=== PATIENT | female | born 1960 | race Caucasian/White ===

== ENCOUNTER → 2020-04-14 10:55 | Outpatient (CLI) | payer BC, SELFPAY ==
--- NOTE | 2020-04-14 | DI.MG.S_ITS ---
BILATERAL DIGITAL SCREENING MAMMOGRAM 3D/2D WITH CAD: 04/14/2020 CLINICAL: Routine screening. Comparison is made to exams dated: 02/19/2019 mammogram, 01/30/2018 mammogram, and 12/27/2016 mammogram - outside location. The tissue of both breasts is heterogeneously dense. This may lower the sensitivity of mammography. Current study was also evaluated with a Computer Aided Detection (CAD) system. There is developing architectural distortion in the left breast at 12 o'clock posterior depth. No other significant masses, calcifications, or other findings are seen in either breast. IMPRESSION: INCOMPLETE: NEEDS ADDITIONAL IMAGING EVALUATION The developing architectural distortion in the left breast is indeterminate. Additional views with possible ultrasound are recommended. This exam was interpreted at Station ID: [id number]. NOTE: For mammograms, a report in lay terms will be sent to the patient. Approximately 15% of breast malignancies will not be visualized mammographically. In the management of a palpable breast mass, a negative mammogram must not discourage biopsy of a clinically suspicious lesion. Electronically Signed By: Promise riddle/micaela:04/14/2020 16:28:32 letter sent: Additional Imaging Needed ACR BI-RADS Category 0: Incomplete 3340F
== END ==
PROVIDERS: PCP Family Medicine; Referring Provider Family Medicine; Visit Provider Family Medicine
DX: Z12.31 Encounter for screening mammogram for malignant neoplasm of breast (principal)
CPT/HCPCS: 77063; 77067

== ENCOUNTER → 2020-05-04 15:04 | Outpatient (CLI) | payer BC, SELFPAY ==
--- NOTE | 2020-05-04 15:06 | DI.US.S_ITS ---
ULTRASOUND OF LEFT BREAST: 05/04/2020 CLINICAL: Left breast ABN Mammo. Comparison is made to exams dated: 05/04/2020 mammogram, 04/14/2020 mammogram - [facility], 02/19/2019 mammogram, 01/30/2018 mammogram, and 12/27/2016 mammogram - outside location. Real-time ultrasound of the left breast was performed. George scale images of the real-time examination were reviewed. No significant abnormalities were seen sonographically in the left breast. IMPRESSION: NEGATIVE There is no sonographic evidence of malignancy. There is no abnormality seen in the left breast to correspond with the resolved mammography finding which is consistent with normal fibroglandular tissue. A 1 year screening mammogram is recommended. This exam was interpreted at Station ID: [id number]. Electronically Signed By: Chuck Rodrigez M.D. aty/:05/04/2020 16:34:04 letter sent: Normal Exam Ultrasound BI-RADS: 1 Negative
--- NOTE | 2020-05-04 15:06 | DI.MG.S_ITS ---
UNILATERAL LEFT DIGITAL DIAGNOSTIC MAMMOGRAM 3D/2D WITH ADDITIONAL VIEWS: 05/04/2020 CLINICAL: Additional evaluation requested from prior study. Comparison is made to exams dated: 04/14/2020 mammogram - [facility], 02/19/2019 mammogram, and 01/30/2018 mammogram - outside location. The tissue of left breast is heterogeneously dense. This may lower the sensitivity of mammography. The previously described developing architectural distortion in the left breast at 12 o'clock posterior depth is no longer visualized on today's additional views and is consistent with summation artifact. No other significant masses or calcifications are seen in the breast. IMPRESSION: INCOMPLETE: NEEDS ADDITIONAL IMAGING EVALUATION The previously described possible architectural distortion disperses with additional views and is consistent with summation artifact. An ultrasound is recommended for further evaluation and is scheduled to immediately follow this study. This exam was interpreted at Station ID: [id number]. NOTE: For mammograms, a report in lay terms will be sent to the patient. Approximately 15% of breast malignancies will not be visualized mammographically. In the management of a palpable breast mass, a negative mammogram must not discourage biopsy of a clinically suspicious lesion. Electronically Signed By: Chuck Rodrigez M.D. aty/:05/04/2020 16:32:52 ACR BI-RADS Category 0: Incomplete 3340F
== END ==
PROVIDERS: PCP Family Medicine; Referring Provider Family Medicine; Visit Provider Family Medicine
DX: R92.8 Other abnormal and inconclusive findings on diagnostic imaging of breast (principal)
CPT/HCPCS: 76642; 77065; G0279

== ENCOUNTER → 2020-12-15 10:00 | Outpatient (CLI) | payer BC, SELFPAY ==
--- NOTE | 2020-12-15 10:03 | DI.RAD.S_ITS ---
PROCEDURE: XR HIP W PEL IF DONE RT 2V INDICATIONS: RT HIP PAIN TECHNIQUE: AP pelvis with lateral view(s) of the right hip(s). COMPARISON: None. FINDINGS: Bones: No fractures or dislocations. Pelvic ring appears intact. No suspicious bony lesions. Mild symmetric bilateral DJD appreciated. No avascular necrosis of the right femoral head. Soft tissues: The visualized bowel gas pattern is normal. No suspicious soft tissue calcifications. IMPRESSION: Mild bilateral hip DJD. Dictated by: Talon Solorio M.D. on 12/15/2020 at 11:45 Approved by: Talon Solorio M.D. on 12/15/2020 at 11:46
== END ==
PROVIDERS: PCP Family Medicine; Referring Provider Family Medicine; Visit Provider Family Medicine
DX: M25.551 Pain in right hip (principal); M16.0 Bilateral primary osteoarthritis of hip
CPT/HCPCS: 73502

== ENCOUNTER → 2021-06-11 16:06 | Outpatient (CLI) | payer BC, SELFPAY ==
--- NOTE | 2021-06-11 | DI.MG.S_ITS ---
BILATERAL DIGITAL SCREENING MAMMOGRAM 3D/2D WITH CAD: 06/11/2021 CLINICAL: Routine screening. Family history of breast cancer. Comparison is made to exams dated: 04/14/2020 mammogram - [facility], 02/19/2019 mammogram - outside location, 05/04/2020 mammogram, and 05/04/2020 ultrasound - [facility]. There are scattered fibroglandular elements in both breasts. Current study was also evaluated with a Computer Aided Detection (CAD) system. No significant masses, calcifications, or other findings are seen in either breast. There has been no significant interval change. IMPRESSION: NEGATIVE There is no mammographic evidence of malignancy. A 1 year screening mammogram is recommended. This exam was interpreted at Station ID: [id number]. NOTE: For mammograms, a report in lay terms will be sent to the patient. Approximately 15% of breast malignancies will not be visualized mammographically. In the management of a palpable breast mass, a negative mammogram must not discourage biopsy of a clinically suspicious lesion. Electronically Signed By: Melissa serrano/micaela:06/11/2021 17:04:47 letter sent: Normal Exam ACR BI-RADS Category 1: Negative 3341F
== END ==
PROVIDERS: PCP Family Medicine; Referring Provider Family Medicine; Visit Provider Family Medicine
DX: Z12.31 Encounter for screening mammogram for malignant neoplasm of breast (principal); Z80.3 Family history of malignant neoplasm of breast
CPT/HCPCS: 77063; 77067

== ENCOUNTER → 2022-05-13 07:30 | Outpatient (CLI) | payer BC, SELFPAY ==
--- NOTE | 2022-05-13 | DI.US.S_ITS ---
PROCEDURE: US PELVIC COMPLETE INDICATIONS: Postmenopausal bleeding TECHNIQUE: Real-time scanning was performed of the pelvic organs, with image documentation. Additional endovaginal scanning was necessary due to incomplete visualization of the adnexal and endometrial structures by transabdominal scanning. COMPARISON: None. FINDINGS: Uterus: Uterus is anteverted and normal in size at 9.4 x 4.3 x 5.8 cm. The myometrium is homogeneous. The endometrium measures 10 mm in thickness. A small amount of nonspecific fluid is seen within the fundal endometrium. When the fluid component is subtracted, the endometrium measures approximately 6 mm in combined thickness. Ovaries: The right ovary measures 2.2 x 1.2 x 1.9 cm, with a calculated ovarian volume of 2.5 cc. The left ovary measures 2 x 1.5 x 1.7 cm, with a calculated ovarian volume of 2.5 cc. The ovaries have a normal sonographic appearance. Less than 12 follicles can be seen in each ovary. No adnexal masses are seen. Other: No pathologic free abdominal or pelvic fluid. IMPRESSION: Mildly thickened endometrium with a small amount of nonspecific endometrial fluid. In the setting of postmenopausal bleeding, gynecological consultation is recommended to evaluate for a possible endometrial biopsy. We strive to produce accurate, complete, and clear reports of imaging services. To assist us in improving patient care, this report was composed using standard report templates and voice recognition software. Therefore, it may contain abnormal punctuation, insertions and/or omissions. Occasional wrong-word or sound-alike substitutions may occur. Though we review the report and make efforts to correct it, we do recommend that the report be read carefully in proper context to recognize any text inaccuracies. Dictated by: Talib Miranda M.D. on 05/13/2022 at 12:39 Approved by: Talib Miranda M.D. on 05/13/2022 at 12:43
== END ==
PROVIDERS: PCP Family Medicine; Referring Provider Family Medicine; Visit Provider Family Medicine
DX: N95.0 Postmenopausal bleeding (principal); R93.89 Abnormal findings on diagnostic imaging of other specified body structures
CPT/HCPCS: 76830; 76856

== ENCOUNTER → 2022-06-20 16:40 | Outpatient (CLI) | payer BC, SELFPAY ==
--- NOTE | 2022-06-20 16:42 | DI.MG.S_ITS ---
BILATERAL DIGITAL SCREENING MAMMOGRAM 3D/2D WITH CAD: 06/20/2022 CLINICAL: Routine screening. Family history of breast cancer. Comparison is made to exams dated: 06/11/2021 mammogram, 04/14/2020 mammogram - [facility], and 02/19/2019 mammogram - outside location. There are scattered areas of fibroglandular density in both breasts (category b / 25%-50% glandular tissue). Current study was also evaluated with a Computer Aided Detection (CAD) system. No significant masses, calcifications, or other findings are seen in either breast. There has been no significant interval change. IMPRESSION: NEGATIVE There is no mammographic evidence of malignancy. A 1 year screening mammogram is recommended. Based on the Tyrer Cuzick model (a risk assessment model) the patient's lifetime risk is 10.4% and her 10 year risk is 5.9%. According to the ACR, ACS, and NCCN guidelines, an annual breast MRI exam along with mammogram is recommended if the patient's lifetime risk is 20% or greater. This exam was interpreted at Station ID: [id number]. NOTE: For mammograms, a report in lay terms will be sent to the patient. Approximately 15% of breast malignancies will not be visualized mammographically. In the management of a palpable breast mass, a negative mammogram must not discourage biopsy of a clinically suspicious lesion. Electronically Signed By: Martin shepherd/micaela:06/21/2022 09:03:27 letter sent: Normal Exam ACR BI-RADS Category 1: Negative 3341F
== END ==
PROVIDERS: PCP Family Medicine; Referring Provider Family Medicine; Visit Provider Family Medicine
DX: Z12.31 Encounter for screening mammogram for malignant neoplasm of breast (principal); Z80.3 Family history of malignant neoplasm of breast
CPT/HCPCS: 77063; 77067

== ENCOUNTER → 2022-12-06 | Outpatient (CLI) | payer BC, SELFPAY ==
--- NOTE | 2022-12-06 | DI.RAD.S_ITS ---
Bone Density Report Name: ALEM AMANDA Age: 62 Sex: Female Ethnicity: White Date of : 1960 Indication: postmenopausal; screening for osteoporosis; Referring Provider: NEREYDA DE LEON Study: Bone densitometry was performed. Exam Date: December 06, 2022 Accession number: [id number] Bone Density: Region BMD T-score Z-score Classification AP Spine(L1, L4) 1.107 0.6 2.3 Normal Femoral Neck (Left) 0.703 -1.3 0.1 Osteopenia Total Hip (Left) 0.847 -0.8 0.3 Normal Femoral Neck (Right) 0.741 -1.0 0.4 Normal Total Hip (Right) 0.855 -0.7 0.4 Normal Total Hip Mean 0.851 -0.8 0.4 Normal World Health Organization criteria for BMD impression classify patients as: Normal (T-score at or above -1.0), Osteopenia (T-score between -1.0 and -2.5), or Osteoporosis (T-score at or below -2.5). 10-year Fracture Risk(1): Major Osteoporotic Fracture 7.7% Hip Fracture 0.7% Reported Risk Factors: [place] (), Neck BMD=0.703, BMI=22.5 (1) FRAX(R) Version 3.08. Fracture probability calculated for an untreated patient. Fracture probability may be lower if the patient has received treatment. Impression: The patient has low bone mass, based on the Left Femoral Neck T-score. The patient has an estimated ten-year risk of hip fracture of 0.7% and an estimated ten-year risk of major fracture of 7.7%, based on the WHO FRAX algorithm. Discussion: BONE DENSITY IS LOW AT ONE OR MORE SKELETAL SITES. This patient's lowest T-score is low at one or more skeletal sites. It meets the World Health Organization's (WHO) criteria for low bone mass (T-score between -1.0 and -2.5). The patient's 10-year risk of fracture as calculated by FRAX is less than the threshold where pharmacological therapy is recommended by the National Osteoporosis Foundation (NOF). However, all treatment decisions require clinical judgment and consideration of individual patient factors, including patient preferences, comorbidities, previous drug use, risk factors not captured in the FRAX model (e.g., frailty, falls, vitamin D deficiency, increased bone turnover, interval significant decline in bone density) and possible under or overestimation of fracture risk by FRAX. The patient should follow a healthful lifestyle (good nutrition with adequate calcium and vitamin D, and appropriate weight-bearing exercise). Follow-Up: Consider repeating this study in 2 to 3 years to reassess this patient's status, or sooner if there is some new clinical indication. Reported by: CHANCE GASTON M.D. on 12/06/2022 12:10:00 PM.
== END ==
LOC: RAD 11:58
PROVIDERS: Family Provider Family Medicine; PCP Family Medicine; Referring Provider Family Medicine; Visit Provider Family Medicine
DX: Z13.820 Encounter for screening for osteoporosis (principal); Z78.0 Asymptomatic menopausal state; M85.852 Other specified disorders of bone density and structure, left thigh; K63.9 Disease of intestine, unspecified; Z90.710 Acquired absence of both cervix and uterus; Z92.23 Personal history of estrogen therapy
CPT/HCPCS: 77080

== ENCOUNTER 2023-03-07 09:00 | Outpatient (RCR) | payer BC, SELFPAY ==
--- NOTE | 2023-01-05 17:14 | PT.OPPOC ---
Physical, Occupational & Speech Therapy At [facility] Current Diagnoses Segmental and somatic dysfunction of pelvic region (01/10/23) Pelvic muscle wasting (01/10/23) Unspecified dyspareunia (01/10/23) Visit Care Team Role Provider Type Lilliana Ng MD Attending Provider Physician Family Provider Primary Care Provider Referring Provider Specialty: Family Practice Address: [address] [place] [address], [facility] [place], [facility] Email: Plan Of Care PT-OP-T Assessment and Plan Start: 01/05/23 13:01 Freq: Status: Active Protocol: Document 01/05/23 13:00 [facility] (Rec: 01/10/23 16:53 [facility] [id number]) Physical Therapy Assessment Rehab Potential Rehabilitation Potential Excellent Evaluation Complexity Number of Personal Factors/Comorbidities 0 Number of Body Systems Impaired 1-2 Clinical Presentation at Evaluation Stable Impairments Impairments Activity Tolerance,Pain,Soft Tissue Mobility,Strength Other Impairments urinary leakage with walking and hiking, dyspareunia Goals 4 Impairment Decreased endurance of the levator ani Short Term Goal (STG) Juliana is able to sustain a pelvic floor contraction x 10 seconds in supine STG Duration 4 weeks Director Informatics Goal (LTG) Juliana is able to sustain a pelvic floor contraction in standing x 10 sec LTG Duration 12 weeks 3 Impairment pelvic floor weakness primarily in the anterior pelvic floor with Juliana testing 1/5 on MMT Director Informatics Goal (LTG) Juliana is able to improve overall levator ani strength and increase her anterior pelvic floor strength to 3/5 or better LTG Duration 12 weeks 2 Impairment urinary stress incontinence with walking and hiking Short Term Goal (STG) Juliana is educated in a pelvic floor strengthening program to improve support to the bladder with walking and hiking STG Duration 4 weeks Half-Way Goal (LTG) Juliana reports a overall reduction of urinary incontinence with walking and hiking and is not having to wear a pad during walking or hiking LTG Duration 12 weeks 1 Impairment pt has a pelvic pain urgency and frequency symptom scale of 21 Director Informatics Goal (LTG) Juliana reports a overall reduction in urinary urgency, frequency and pain and her symptom score is decreased to 10-12 points LTG Duration 12 weeks Assessment Summary Assessment Juliana is a 62 year old female 3 para 3 LMP at age 51 referred to PT with c/o dyspareunia and urinary stress incontinence with walking and hiking. She also describes urinary urgency as well as nocturia 2 times per night. Juliana had a complete vaginal hysterectomy in June 2022 due to endometrial cancer. Pt notes she was on vaginal estrogen prior to her hysterectomy but needed to stop it 3 months prior to surgery. She reports it took her tissue a while to heal after the hysterectomy. She is now on estrace and she feels this is helping. She is also undergoing laser treatment from Anneliese CALHOUN and has had success with this in the past . Pt's PT goals are to decrease pelvic pain with intercourse and eliminate stress incontinence with walking and hiking. With pelvic floor evaluation today Juliana is weak in the anterior chao of the levator ani testing a 1/5 MMT, she is 3/5 for lateral and posterior chao. I did not feel any guarding of the pelvic floor but her vaginal tissue was irritated to touch. Juliana has difficulty feeling the anterior wall of the levator ani and time was spent today on pelvic floor anatomy and education on pelvic floor facilitation. Juliana is a good candidate for pelvic floor PT including EMG biofeedback as well as use of NMES for improved sensation of the levator ani and recruitment of the anterior wall. Physical Therapy Plan Frequency and Duration Frequency of Treatment 1x/Week Duration of treatment (weeks) 12 Plan of Care Start Date 01/05/23 Plan of Care End Date 03/30/23 Therapeutic Interventions Therapeutic Interventions Home Exercise Program, Neuromuscular Re-education, Patient/Caregiver Education, Self-Care/Home Management, Therapeutic Activities Modalities Biofeedback Other Therapeutic Interventions NMES for the pelvic floor Next Visit Focus/Plan Next Note Type Treatment Note Next Visit Plan Begin EMG biofeedback and NMES next visit for re-education of the levator ani, relaxed awareness of the levator ani and pelvic floor endurance training Plan of Care Dates Plan of Care Start Date 01/05/23 Plan of Care End Date 03/30/23 Electronically Signed by: Mary Kate Pérez, PT 01/10/23 [id number] If you are in agreement with this Plan of Care, please return a signed and dated copy. I have reviewed this Plan of Care and certify that the skilled therapy services above are required to meet the patient?s needs. Physician Signature Date Printed Name and Credentials Clinical Instructor Signature Printed Name and Credentials
--- NOTE | 2023-01-05 17:14 | PT.OIE ---
Current Diagnoses Segmental and somatic dysfunction of pelvic region (01/10/23) Pelvic muscle wasting (01/10/23) Unspecified dyspareunia (01/10/23) Visit Care Team Role Provider Type Lilliana Ng MD Attending Provider Physician Family Provider Primary Care Provider Referring Provider Specialty: Family Practice Address: [address] [place] [address] [place], [address] Email: [email or web address] Physical Therapy Initial Evaluation PT-OP-A Visit Information Start: 01/05/23 13:01 Freq: Status: Active Protocol: Document 01/05/23 13:00 [facility] (Rec: 01/05/23 13:30 [facility] [id number]) Out-Patient Physical Therapy Visit Information Visit Information Visit Type Initial Evaluation Visit Start Time 13:00 Visit Stop Time 13:45 Total Visit Minutes 45 Visit Number 1 Evaluation Information Evaluation Date 01/05/23 PT-OP-B Current Condition Start: 01/05/23 13:01 Freq: Status: Active Protocol: Document 01/05/23 13:00 [facility] (Rec: 01/05/23 13:30 [facility] [id number]) Current Condition History of Current Condition Onset Date 2020 Current Complaints dyspaurnia, urinary stress incontinence with hiking and walking History of Current Condition 61 yo gravid 3 para 3 LMP at age 51 who had a complete vaginal hysterectomy in June 2022 due to endometrial cancer. She has a history of dysparnuia with intercourse for a long time. In 2013 she was diagnosed with lichen sclerosus, (later she was told she did not have lichen sclerosus so she is not sure that is what she had but she has done previous laser treatments which helped with vaginal tissue health prior to her hysterectomy) She went off estrogen x 3 months prior to her hysterectomy. Her pain increased with intercourse following her surgery and without the estrogen and now she is back on estrace. Pt reports she is due for another laser treatment with nasim CALHOUN. She is going to get the [employer] lux for home use. Incontinence symptoms can include burning and a itch, she quit wearing pads and using a barrier ointment has helped her symptoms. She gets her symptoms when out hiking our walking. It is usually after she has been out walking a while, no urge involved with the leakage. She has been told she has a vagnial wall prolapse. hx of ulcerative colitis but its in remission. Treatment Goals Patient/Caregiver Goals Goals include decreasing pain with intercourse and decreasing urinary incontinence PT-OP-C Subjective Start: 01/05/23 13:01 Freq: Status: Active Protocol: Document 01/05/23 13:00 [facility] (Rec: 01/10/23 13:11 [facility] [id number]) OP-PT Subjective Patient Comments Patient Comments pt notes she is not sure if she is doing kegels right and would like guidance on how to do them OP-PT Pain Assessment Location low back pain Intensity 6 Scale Used Numeric (0 - 10) pelvic floor Pain Location Details pelvic floor Intensity 5 Scale Used Numeric (0 - 10) Description- Other pain can vary from 5-10/10 Pain Duration intercourse PT-OP-I Pelvic Floor Start: 01/05/23 13:01 Freq: Status: Active Protocol: Document 01/05/23 13:00 [facility] (Rec: 01/05/23 18:44 [facility] [id number]) Pelvic Floor Assessment Urine Pelvic Floor Surgery No Urinary Symptoms Urge Sensation,Pain Other Urinary Symptoms dysparunia Leakage Size Medium Other Leakage Causes hiking and walking Leaks Per Day 3-4 per week Nocturia 1-2 Urine Pad Type Panty Liner Pelvic Clock Pelvic Clock 12-3 Atrophy Pelvic Clock 3-6 Atrophy Pelvic Clock 6-9 Atrophy Pelvic Clock 9-12 Atrophy Contraction Ability Voluntary Contraction Weak Voluntary Relaxation Weak Manual Muscle Testing Left 3 Manual Muscle Testing Right 3 Manual Muscle Testing Anterior 1 Manual Muscle Testing Posterior 3 Comments Pelvic Floor Comments pt has the most strength deficit in the anterior pelvic floor PT-OP-J Posture/Palpation/Skin Start: 01/05/23 13:01 Freq: Status: Active Protocol: Document 01/05/23 13:00 [facility] (Rec: 01/10/23 17:13 [facility] [id number]) Palpation Assessment Location levator ani Palpation Findings Tenderness Palpation Details pt has tenderness along the lateral chao of the levator ani, no muscle guarding but tissue irritation PT-OP-Q Treatments Start: 01/05/23 13:01 Freq: Status: Active Protocol: Document 01/05/23 13:00 [facility] (Rec: 01/05/23 18:40 [facility] [id number]) Therapeutic Exercises Supine Exercises adductor assist with pelvci floor contraction Reps/Minutes x 10 reps Comments pt needs adductor assist to facilitate the anterior pelvic floor pelvic floor long holds Reps/Minutes 10 seconds on 10 seconds off PT-OP-T Assessment and Plan Start: 01/05/23 13:01 Freq: Status: Active Protocol: Document 01/05/23 13:00 [facility] (Rec: 01/10/23 16:53 [facility] [id number]) Physical Therapy Assessment Rehab Potential Rehabilitation Potential Excellent Evaluation Complexity Number of Personal Factors/Comorbidities 0 Number of Body Systems Impaired 1-2 Clinical Presentation at Evaluation Stable Impairments Impairments Activity Tolerance,Pain,Soft Tissue Mobility,Strength Other Impairments urinary leakage with walking and hiking, dyspareunia Goals 4 Impairment Decreased endurance of the levator ani Short Term Goal (STG) Juliana is able to sustain a pelvic floor contraction x 10 seconds in supine STG Duration 4 weeks [employer] Professor Goal (LTG) Juliana is able to sustain a pelvic floor contraction in standing x 10 sec LTG Duration 12 weeks 3 Impairment pelvic floor weakness primarily in the anterior pelvic floor with Juliana testing 1/5 on MMT [employer] Professor Goal (LTG) Juliana is able to improve overall levator ani strength and increase her anterior pelvic floor strength to 3/5 or better LTG Duration 12 weeks 2 Impairment urinary stress incontinence with walking and hiking Short Term Goal (STG) Juliana is educated in a pelvic floor strengthening program to improve support to the bladder with walking and hiking STG Duration 4 weeks [employer] Professor Goal (LTG) Juliana reports a overall reduction of urinary incontinence with walking and hiking and is not having to wear a pad during walking or hiking LTG Duration 12 weeks 1 Impairment pt has a pelvic pain urgency and frequency symptom scale of 21 [employer] Professor Goal (LTG) Juliana reports a overall reduction in urinary urgency, frequency and pain and her symptom score is decreased to 10-12 points LTG Duration 12 weeks Assessment Summary Assessment Juliana is a 62 year old female 3 para 3 LMP at age 51 referred to PT with c/o dyspareunia and urinary stress incontinence with walking and hiking. She also describes urinary urgency as well as nocturia 2 times per night. Juliana had a complete vaginal hysterectomy in June 2022 due to endometrial cancer. Pt notes she was on vaginal estrogen prior to her hysterectomy but needed to stop it 3 months prior to surgery. She reports it took her tissue a while to heal after the hysterectomy. She is now on estrace and she feels this is helping. She is also undergoing laser treatment from Anneliese CALHOUN and has had success with this in the past . Pt's PT goals are to decrease pelvic pain with intercourse and eliminate stress incontinence with walking and hiking. With pelvic floor evaluation today Juliana is weak in the anterior chao of the levator ani testing a 1/5 MMT, she is 3/5 for lateral and posterior chao. I did not feel any guarding of the pelvic floor but her vaginal tissue was irritated to touch. Juliana has difficulty feeling the anterior wall of the levator ani and time was spent today on pelvic floor anatomy and education on pelvic floor facilitation. Juliana is a good candidate for pelvic floor PT including EMG biofeedback as well as use of NMES for improved sensation of the levator ani and recruitment of the anterior wall. Physical Therapy Plan Frequency and Duration Frequency of Treatment 1x/Week Duration of treatment (weeks) 12 Plan of Care Start Date 01/05/23 Plan of Care End Date 03/30/23 Therapeutic Interventions Therapeutic Interventions Home Exercise Program, Neuromuscular Re-education, Patient/Caregiver Education, Self-Care/Home Management, Therapeutic Activities Modalities Biofeedback Other Therapeutic Interventions NMES for the pelvic floor Next Visit Focus/Plan Next Note Type Treatment Note Next Visit Plan Begin EMG biofeedback and NMES next visit for re-education of the levator ani, relaxed awareness of the levator ani and pelvic floor endurance training
--- NOTE | 2023-01-10 17:22 | PT.OTN ---
Current Diagnoses Segmental and somatic dysfunction of pelvic region (01/10/23) Pelvic muscle wasting (01/10/23) Unspecified dyspareunia (01/10/23) Physical Therapy Treatment Note PT-OP-A Visit Information Start: 01/05/23 13:01 Freq: Status: Active Protocol: Document 01/10/23 17:15 [facility] (Rec: 01/10/23 17:22 [facility] [id number]) Out-Patient Physical Therapy Visit Information Visit Information Visit Type Treatment Note Visit Start Time 13:00 Visit Stop Time 13:45 Total Visit Minutes 45 Visit Number 2 PT-OP-B Current Condition Start: 01/05/23 13:01 Freq: Status: Active Protocol: Document 01/05/23 13:00 [facility] (Rec: 01/05/23 13:30 [facility] [id number]) Current Condition History of Current Condition Onset Date 2020 Current Complaints dyspaurnia, urinary stress incontinence with hiking and walking History of Current Condition 61 yo gravid 3 para 3 LMP at age 51 who had a complete vaginal hysterectomy in June 2022 due to endometrial cancer. She has a history of dysparnuia with intercourse for a long time. In 2013 she was diagnosed with lichen sclerosus, (later she was told she did not have lichen sclerosus so she is not sure that is what she had but she has done previous laser treatments which helped with vaginal tissue health prior to her hysterectomy) She went off estrogen x 3 months prior to her hysterectomy. Her pain increased with intercourse following her surgery and without the estrogen and now she is back on estrace. Pt reports she is due for another laser treatment with reggeronimo CALHOUN. She is going to get the [employer] for home use. Incontinence symptoms can include burning and a itch, she quit wearing pads and using a barrier ointment has helped her symptoms. She gets her symptoms when out hiking our walking. It is usually after she has been out walking a while, no urge involved with the leakage. She has been told she has a vagnial wall prolapse. hx of ulcerative colitis but its in remission. Treatment Goals Patient/Caregiver Goals Goals include decreasing pain with intercourse and decreasing urinary incontinence PT-OP-C Subjective Start: 01/05/23 13:01 Freq: Status: Active Protocol: Document 01/10/23 17:15 [facility] (Rec: 01/10/23 17:22 [facility] [id number]) OP-PT Subjective Patient Comments Patient Comments pt has questions on proper activation of her pelvic floor today, she has a appointment next week for laser therapy for the vaginal wall PT-OP-I Pelvic Floor Start: 01/05/23 13:01 Freq: Status: Active Protocol: Document 01/05/23 13:00 [facility] (Rec: 01/05/23 18:44 [facility] [id number]) Pelvic Floor Assessment Urine Pelvic Floor Surgery No Urinary Symptoms Urge Sensation,Pain Other Urinary Symptoms dysparunia Leakage Size Medium Other Leakage Causes hiking and walking Leaks Per Day 3-4 per week Nocturia 1-2 Urine Pad Type Panty Liner Pelvic Clock Pelvic Clock 12-3 Atrophy Pelvic Clock 3-6 Atrophy Pelvic Clock 6-9 Atrophy Pelvic Clock 9-12 Atrophy Contraction Ability Voluntary Contraction Weak Voluntary Relaxation Weak Manual Muscle Testing Left 3 Manual Muscle Testing Right 3 Manual Muscle Testing Anterior 1 Manual Muscle Testing Posterior 3 Comments Pelvic Floor Comments pt has the most strength deficit in the anterior pelvic floor PT-OP-J Posture/Palpation/Skin Start: 01/05/23 13:01 Freq: Status: Active Protocol: Document 01/05/23 13:00 [facility] (Rec: 01/10/23 17:13 [facility] [id number]) Palpation Assessment Location levator ani Palpation Findings Tenderness Palpation Details pt has tenderness along the lateral chao of the levator ani, no muscle guarding but tissue irritation PT-OP-Q Treatments Start: 01/05/23 13:01 Freq: Status: Active Protocol: Document 01/10/23 17:15 [facility] (Rec: 01/10/23 17:22 [facility] [id number]) Therapeutic Exercises Supine Exercises quick contractions Reps/Minutes x 10 reps 2 sec on 2 sec off adductor assist with pelvci floor contraction Reps/Minutes x 10 reps Comments pt needs adductor assist to facilitate the anterior pelvic floor pelvic floor long holds Reps/Minutes 10 seconds on 10 seconds off Comments average of 13 uv and max of 42 uv Neuro Re-Education Treatment Other Activities EMG biofeedback Comments education on proper pelvic floor facilitation and relaxed awareness of the levator ani NMES for the pelvic floor Details NMES Reps/Duration 10 Comments with vaginal sensor, NMES was performed and pt could feel sensation at 20 intensity, it was increased to 23 for pt comfort. She was able to feel a anterior pelvic floor contraction with the NMES PT-OP-T Assessment and Plan Start: 01/05/23 13:01 Freq: Status: Active Protocol: Document 01/10/23 17:15 [facility] (Rec: 01/10/23 17:22 [facility] [id number]) Physical Therapy Assessment Assessment Summary Assessment Juliana tolerated the addition of EMG biofeedback as well as NMES for the pelvic floor today and she was able to feel the anterior pelvic floor with NMES. She will be having a laser therapy treatment this next week and will continue to work on her HEP Physical Therapy Plan Frequency and Duration Frequency of Treatment 1x/Week Duration of treatment (weeks) 12 Plan of Care Start Date 01/05/23 Plan of Care End Date 03/30/23 Therapeutic Interventions Therapeutic Interventions Home Exercise Program, Neuromuscular Re-education, Patient/Caregiver Education, Self-Care/Home Management, Therapeutic Activities Modalities Biofeedback Other Therapeutic Interventions NMES for the pelvic floor Next Visit Focus/Plan Next Note Type Treatment Note Next Visit Plan continue with EMG biofeedback and NMES for pelvic floor strength and relaxed awareness of the levator ani
--- NOTE | 2023-01-19 17:37 | PT.OTN ---
Current Diagnoses Segmental and somatic dysfunction of pelvic region (01/19/23) Pelvic muscle wasting (01/19/23) Unspecified dyspareunia (01/19/23) Physical Therapy Treatment Note PT-OP-A Visit Information Start: 01/05/23 13:01 Freq: Status: Active Protocol: Document 01/19/23 15:12 [facility] (Rec: 01/19/23 15:54 [facility] [id number]) Out-Patient Physical Therapy Visit Information Visit Information Visit Type Treatment Note Visit Start Time 15:10 Visit Stop Time 15:55 Total Visit Minutes 40 Visit Number 3 PT-OP-B Current Condition Start: 01/05/23 13:01 Freq: Status: Active Protocol: Document 01/05/23 13:00 [facility] (Rec: 01/05/23 13:30 [facility] [id number]) Current Condition History of Current Condition Onset Date 2020 Current Complaints dyspaurnia, urinary stress incontinence with hiking and walking History of Current Condition 61 yo gravid 3 para 3 LMP at age 51 who had a complete vaginal hysterectomy in June 2022 due to endometrial cancer. She has a history of dysparnuia with intercourse for a long time. In 2013 she was diagnosed with lichen sclerosus, (later she was told she did not have lichen sclerosus so she is not sure that is what she had but she has done previous laser treatments which helped with vaginal tissue health prior to her hysterectomy) She went off estrogen x 3 months prior to her hysterectomy. Her pain increased with intercourse following her surgery and without the estrogen and now she is back on estrace. Pt reports she is due for another laser treatment with reggeronimo CALHOUN. She is going to get the [employer] for home use. Incontinence symptoms can include burning and a itch, she quit wearing pads and using a barrier ointment has helped her symptoms. She gets her symptoms when out hiking our walking. It is usually after she has been out walking a while, no urge involved with the leakage. She has been told she has a vagnial wall prolapse. hx of ulcerative colitis but its in remission. Treatment Goals Patient/Caregiver Goals Goals include decreasing pain with intercourse and decreasing urinary incontinence PT-OP-C Subjective Start: 01/05/23 13:01 Freq: Status: Active Protocol: Document 01/19/23 15:12 [facility] (Rec: 01/19/23 15:54 [facility] [id number]) OP-PT Subjective Patient Comments Patient Comments pt did her laser treatment as well as is using her red light therapy. Hiked twice and did not leak with hiking and she hasn't leaked with biking PT-OP-I Pelvic Floor Start: 01/05/23 13:01 Freq: Status: Active Protocol: Document 01/05/23 13:00 [facility] (Rec: 01/05/23 18:44 [facility] [id number]) Pelvic Floor Assessment Urine Pelvic Floor Surgery No Urinary Symptoms Urge Sensation,Pain Other Urinary Symptoms dysparunia Leakage Size Medium Other Leakage Causes hiking and walking Leaks Per Day 3-4 per week Nocturia 1-2 Urine Pad Type Panty Liner Pelvic Clock Pelvic Clock 12-3 Atrophy Pelvic Clock 3-6 Atrophy Pelvic Clock 6-9 Atrophy Pelvic Clock 9-12 Atrophy Contraction Ability Voluntary Contraction Weak Voluntary Relaxation Weak Manual Muscle Testing Left 3 Manual Muscle Testing Right 3 Manual Muscle Testing Anterior 1 Manual Muscle Testing Posterior 3 Comments Pelvic Floor Comments pt has the most strength deficit in the anterior pelvic floor PT-OP-J Posture/Palpation/Skin Start: 01/05/23 13:01 Freq: Status: Active Protocol: Document 01/05/23 13:00 [facility] (Rec: 01/10/23 17:13 [facility] [id number]) Palpation Assessment Location levator ani Palpation Findings Tenderness Palpation Details pt has tenderness along the lateral chao of the levator ani, no muscle guarding but tissue irritation PT-OP-Q Treatments Start: 01/05/23 13:01 Freq: Status: Active Protocol: Document 01/19/23 15:12 [facility] (Rec: 01/19/23 15:54 [facility] [id number]) Therapeutic Exercises Supine Exercises quick contractions Reps/Minutes x 10 reps 2 sec on 2 sec off adductor assist with pelvci floor contraction Reps/Minutes x 10 reps Comments pt needs adductor assist to facilitate the anterior pelvic floor pelvic floor long holds Reps/Minutes 10 sec on 10 sec off Comments 12.2 Self-Care/Home Management Treatment Education Patient Education Home Exercise Program Other Education pt was educated on using her dilators after the red light therapy and before intercourse . PT-OP-T Assessment and Plan Start: 01/05/23 13:01 Freq: Status: Active Protocol: Document 01/19/23 15:12 [facility] (Rec: 01/19/23 15:54 [facility] [id number]) Physical Therapy Assessment Goals 4 Impairment Decreased endurance of the levator ani Short Term Goal (STG) Juliana is able to sustain a pelvic floor contraction x 10 seconds in supine STG Duration 4 weeks [employer] Clerk Goal (LTG) Juliana is able to sustain a pelvic floor contraction in standing x 10 sec LTG Duration 12 weeks 3 Impairment pelvic floor weakness primarily in the anterior pelvic floor with Juliana testing 1/5 on MMT Halfway Goal (LTG) Juliana is able to improve overall levator ani strength and increase her anterior pelvic floor strength to 3/5 or better LTG Duration 12 weeks 2 Impairment urinary stress incontinence with walking and hiking Short Term Goal (STG) Juliana is educated in a pelvic floor strengthening program to improve support to the bladder with walking and hiking STG Duration 4 weeks [employer] Clerk Goal (LTG) Juliana reports a overall reduction of urinary incontinence with walking and hiking and is not having to wear a pad during walking or hiking LTG Duration 12 weeks 1 Impairment pt has a pelvic pain urgency and frequency symptom scale of 21 Halfway Goal (LTG) Juliana reports a overall reduction in urinary urgency, frequency and pain and her symptom score is decreased to 10-12 points LTG Duration 12 weeks Assessment Summary Assessment Juliana is doing better overall. She has been sick so she hasn't had intercourse to test out how her pain levels are. She did do her laser therapy treatment and feels that the red light therapy is also helping. She notes she really hasn't noted any leaking. She is still working on trying to find her anterior pelvic floor Physical Therapy Plan Frequency and Duration Frequency of Treatment 1x/Week Duration of treatment (weeks) 12 Plan of Care Start Date 01/05/23 Plan of Care End Date 03/30/23 Therapeutic Interventions Therapeutic Interventions Home Exercise Program, Neuromuscular Re-education, Patient/Caregiver Education, Self-Care/Home Management, Therapeutic Activities Modalities Biofeedback Other Therapeutic Interventions NMES for the pelvic floor Next Visit Focus/Plan Next Note Type Treatment Note Next Visit Plan continue with EMG biofeedback and NMES for pelvic floor strength and relaxed awareness of the levator ani
--- NOTE | 2023-02-07 17:03 | PT.OTN ---
Current Diagnoses Segmental and somatic dysfunction of pelvic region (02/07/23) Pelvic muscle wasting (02/07/23) Unspecified dyspareunia (02/07/23) Physical Therapy Treatment Note PT-OP-A Visit Information Start: 01/05/23 13:01 Freq: Status: Active Protocol: Document 02/07/23 16:00 [facility] (Rec: 02/07/23 16:29 [facility] [id number]) Out-Patient Physical Therapy Visit Information Visit Information Visit Type Treatment Note Visit Start Time 16:00 Visit Stop Time 16:30 Total Visit Minutes 30 Visit Number 4 PT-OP-B Current Condition Start: 01/05/23 13:01 Freq: Status: Active Protocol: Document 01/05/23 13:00 [facility] (Rec: 01/05/23 13:30 [facility] [id number]) Current Condition History of Current Condition Onset Date 2020 Current Complaints dyspaurnia, urinary stress incontinence with hiking and walking History of Current Condition 61 yo gravid 3 para 3 LMP at age 51 who had a complete vaginal hysterectomy in June 2022 due to endometrial cancer. She has a history of dysparnuia with intercourse for a long time. In 2013 she was diagnosed with lichen sclerosus, (later she was told she did not have lichen sclerosus so she is not sure that is what she had but she has done previous laser treatments which helped with vaginal tissue health prior to her hysterectomy) She went off estrogen x 3 months prior to her hysterectomy. Her pain increased with intercourse following her surgery and without the estrogen and now she is back on estrace. Pt reports she is due for another laser treatment with reggeronimo CALHOUN. She is going to get the [employer] for home use. Incontinence symptoms can include burning and a itch, she quit wearing pads and using a barrier ointment has helped her symptoms. She gets her symptoms when out hiking our walking. It is usually after she has been out walking a while, no urge involved with the leakage. She has been told she has a vagnial wall prolapse. hx of ulcerative colitis but its in remission. Treatment Goals Patient/Caregiver Goals Goals include decreasing pain with intercourse and decreasing urinary incontinence PT-OP-C Subjective Start: 01/05/23 13:01 Freq: Status: Active Protocol: Document 02/07/23 16:00 [facility] (Rec: 02/07/23 16:29 [facility] [id number]) OP-PT Subjective Patient Comments Patient Comments pt notes she tried doing the dilators after the red light therapy. She feels like the tightness is in the opening part of the vaginal wall. She also notes she was able to go hiking and did not leak Patient Reported Progress Improving PT-OP-I Pelvic Floor Start: 01/05/23 13:01 Freq: Status: Active Protocol: Document 02/07/23 16:29 [facility] (Rec: 02/07/23 16:30 [facility] [id number]) Pelvic Floor Assessment Contraction Ability Manual Muscle Testing Left 4 Manual Muscle Testing Right 4 Manual Muscle Testing Anterior 2 Manual Muscle Testing Posterior 4 PT-OP-J Posture/Palpation/Skin Start: 01/05/23 13:01 Freq: Status: Active Protocol: Document 01/05/23 13:00 [facility] (Rec: 01/10/23 17:13 [facility] [id number]) Palpation Assessment Location levator ani Palpation Findings Tenderness Palpation Details pt has tenderness along the lateral chao of the levator ani, no muscle guarding but tissue irritation PT-OP-Q Treatments Start: 01/05/23 13:01 Freq: Status: Active Protocol: Document 02/07/23 16:00 [facility] (Rec: 02/07/23 17:00 [facility] [id number]) Manual Therapy Treatment Soft Tissue Mobilization 1 Body Location vaginal introitus Mobilization Type Manual Lymphatic Drainage Intensity/Depth Superficial Body Position Hooklying Comments MFR of the vaginal introitus working on the tissue that is adhered and is tender with intercourse Manual Techniques manual assessment of pelvic floor strength Body Position Supine Comments pt is presenting with improved pelvic floor strength especially in the anterior pelvic floor and tests 2/5 MMT Self-Care/Home Management Treatment Education Patient Education Pain Management Other Education pt was educated on use of the dilator as a tool to release the tight tissue at the vaginal introitus that is tender with intercourse PT-OP-T Assessment and Plan Start: 01/05/23 13:01 Freq: Status: Active Protocol: Document 02/07/23 16:00 [facility] (Rec: 02/07/23 16:29 [facility] [id number]) Physical Therapy Assessment Goals 4 Impairment Decreased endurance of the levator ani Short Term Goal (STG) Juliana is able to sustain a pelvic floor contraction x 10 seconds in supine STG Duration 4 weeks [employer] Goal (LTG) Juliana is able to sustain a pelvic floor contraction in standing x 10 sec LTG Duration 12 weeks 3 Impairment pelvic floor weakness primarily in the anterior pelvic floor with Juliana testing 1/5 on MMT Nursing Home Goal (LTG) Juliana is able to improve overall levator ani strength and increase her anterior pelvic floor strength to 3/5 or better LTG Duration 12 weeks 2 Impairment urinary stress incontinence with walking and hiking Short Term Goal (STG) Juliana is educated in a pelvic floor strengthening program to improve support to the bladder with walking and hiking GOAL MET STG Duration 4 weeks [employer] Goal (LTG) Juliana reports a overall reduction of urinary incontinence with walking and hiking and is not having to wear a pad during walking or hiking GOAL MET LTG Duration 12 weeks 1 Impairment pt has a pelvic pain urgency and frequency symptom scale of 21 Nursing Home Goal (LTG) Juliana reports a overall reduction in urinary urgency, frequency and pain and her symptom score is decreased to 10-12 points LTG Duration 12 weeks Assessment Summary Assessment I worked on the tissue of the introitus today as this region feels as if the tissue is adhered L>R side, once on the levator ani muscles there is no tissue that is scared down and Juliana is able to demonstrated improved pelvic floor recruitment. She is now a 2/5 MMT for the anterior pelvic floor. Pt was given a xs dilator to use as a tool to help with tissue tightness in the introitus and she was educated on how to use it. She tolerated this well and will work on this until next visit. Juliana did not have her pelvic floor electrode today so EMG biofeedback will be reassessed next visit Physical Therapy Plan Frequency and Duration Frequency of Treatment 1x/Week Duration of treatment (weeks) 12 Plan of Care Start Date 01/05/23 Plan of Care End Date 03/30/23 Therapeutic Interventions Therapeutic Interventions Home Exercise Program, Neuromuscular Re-education, Patient/Caregiver Education, Self-Care/Home Management, Therapeutic Activities Modalities Biofeedback Other Therapeutic Interventions NMES for the pelvic floor Next Visit Focus/Plan Next Note Type Treatment Note Next Visit Plan reassess endurance of the pelvic floor next visit and how Juliana did with the xs dilator for pelvic floor release
--- NOTE | 2023-03-07 11:47 | PT.OTN ---
Current Diagnoses Segmental and somatic dysfunction of pelvic region (03/07/23) Pelvic muscle wasting (03/07/23) Unspecified dyspareunia (03/07/23) Physical Therapy Treatment Note PT-OP-A Visit Information Start: 01/05/23 13:01 Freq: Status: Active Protocol: Document 03/07/23 08:58 [facility] (Rec: 03/07/23 09:43 [facility] [id number]) Out-Patient Physical Therapy Visit Information Visit Information Visit Type Treatment Note Visit Start Time 09:00 Visit Stop Time 09:45 Total Visit Minutes 45 Visit Number 5 PT-OP-B Current Condition Start: 01/05/23 13:01 Freq: Status: Active Protocol: Document 01/05/23 13:00 [facility] (Rec: 01/05/23 13:30 [facility] [id number]) Current Condition History of Current Condition Onset Date 2020 Current Complaints dyspaurnia, urinary stress incontinence with hiking and walking History of Current Condition 61 yo gravid 3 para 3 LMP at age 51 who had a complete vaginal hysterectomy in June 2022 due to endometrial cancer. She has a history of dysparnuia with intercourse for a long time. In 2013 she was diagnosed with lichen sclerosus, (later she was told she did not have lichen sclerosus so she is not sure that is what she had but she has done previous laser treatments which helped with vaginal tissue health prior to her hysterectomy) She went off estrogen x 3 months prior to her hysterectomy. Her pain increased with intercourse following her surgery and without the estrogen and now she is back on estrace. Pt reports she is due for another laser treatment with reggeronimo CALHOUN. She is going to get the [employer] for home use. Incontinence symptoms can include burning and a itch, she quit wearing pads and using a barrier ointment has helped her symptoms. She gets her symptoms when out hiking our walking. It is usually after she has been out walking a while, no urge involved with the leakage. She has been told she has a vagnial wall prolapse. hx of ulcerative colitis but its in remission. Treatment Goals Patient/Caregiver Goals Goals include decreasing pain with intercourse and decreasing urinary incontinence PT-OP-C Subjective Start: 01/05/23 13:01 Freq: Status: Active Protocol: Document 03/07/23 08:58 [facility] (Rec: 03/07/23 09:43 [facility] [id number]) OP-PT Subjective Patient Comments Patient Comments pt feels she is getting stronger overall and feels good improvement, she didn't feel comfortable yet using the dilator to work on her tissue . She has been on vacation so hasn't done her pelvic floor exercises as much Patient Reported Progress Improving PT-OP-I Pelvic Floor Start: 01/05/23 13:01 Freq: Status: Active Protocol: Document 02/07/23 16:29 [facility] (Rec: 02/07/23 16:30 [facility] [id number]) Pelvic Floor Assessment Contraction Ability Manual Muscle Testing Left 4 Manual Muscle Testing Right 4 Manual Muscle Testing Anterior 2 Manual Muscle Testing Posterior 4 PT-OP-J Posture/Palpation/Skin Start: 01/05/23 13:01 Freq: Status: Active Protocol: Document 01/05/23 13:00 [facility] (Rec: 01/10/23 17:13 [facility] [id number]) Palpation Assessment Location levator ani Palpation Findings Tenderness Palpation Details pt has tenderness along the lateral chao of the levator ani, no muscle guarding but tissue irritation PT-OP-Q Treatments Start: 01/05/23 13:01 Freq: Status: Active Protocol: Document 03/07/23 08:58 [facility] (Rec: 03/07/23 09:43 [facility] [id number]) Therapeutic Exercises Supine Exercises quick contractions Reps/Minutes x 10 reps 2 sec on 2 sec off pelvic floor long holds Reps/Minutes 10 sec on 10 sec off Comments 12.8 and max of 24.8 Manual Therapy Treatment Soft Tissue Mobilization 1 Body Location vaginal introitus Mobilization Type Manual Lymphatic Drainage Intensity/Depth Superficial Body Position Hooklying Comments MFR of the vaginal introitus working on the tissue that is adhered and is tender with intercourse, pt shown how to use the dilator for self massage Self-Care/Home Management Treatment Education Patient Education Pain Management Other Education pt was educated on use of the dilator as a tool to release the tight tissue at the vaginal introitus that is tender with intercourse urge deference technique PT-OP-T Assessment and Plan Start: 01/05/23 13:01 Freq: Status: Active Protocol: Document 03/07/23 08:58 [facility] (Rec: 03/07/23 09:43 [facility] [id number]) Physical Therapy Assessment Goals 4 Impairment Decreased endurance of the levator ani Short Term Goal (STG) Juliana is able to sustain a pelvic floor contraction x 10 seconds in supine GOAL MET STG Duration 4 weeks Skilled Nursing Goal (LTG) Juliana is able to sustain a pelvic floor contraction in standing x 10 sec not yet met LTG Duration 12 weeks 3 Impairment pelvic floor weakness primarily in the anterior pelvic floor with Juliana testing 1/5 on MMT Skilled Nursing Goal (LTG) Juliana is able to improve overall levator ani strength and increase her anterior pelvic floor strength to 3/5 or better Goal met for all chao of the levator ani except the anterior wall which did improved to 2/5 MMT from a 1/ 5MMT. The lateral and posterior chao are now 4/5 MMT LTG Duration 12 weeks 2 Impairment urinary stress incontinence with walking and hiking Short Term Goal (STG) Juliana is educated in a pelvic floor strengthening program to improve support to the bladder with walking and hiking GOAL MET STG Duration 4 weeks Skilled Nursing Goal (LTG) Juliana reports a overall reduction of urinary incontinence with walking and hiking and is not having to wear a pad during walking or hiking GOAL MET LTG Duration 12 weeks 1 Impairment pt has a pelvic pain urgency and frequency symptom scale of 21 Skilled Nursing Goal (LTG) Juliana reports a overall reduction in urinary urgency, frequency and pain and her symptom score is decreased to 10-12 points Good progress, pt notes this is much better, she is only getting up one time per night to void. LTG Duration 12 weeks Assessment Summary Assessment pt feels she is getting stronger, the dripping that she used to get is way better. Overall Juliana has made good progress interms of improved strength and decreased symptoms of leakage. She has requested DC at this time as she started PT for her back. She feels independent with her HEP and will be discharged to a HEP
== END 2023-03-08 12:41 | disposition home or self-care (01) ==
LOC: PHYS 09:00
PROVIDERS: Family Provider Family Medicine; PCP Family Medicine; Referring Provider Family Medicine; Visit Provider Family Medicine
DX: N94.10 Unspecified dyspareunia (principal); M99.05 Segmental and somatic dysfunction of pelvic region; N81.84 Pelvic muscle wasting
CPT/HCPCS: 97110; 97112; 97140; 97161; 97535

== ENCOUNTER → 2023-07-06 11:10 | Outpatient (CLI) | payer BC, SELFPAY ==
--- NOTE | 2023-07-06 | DI.MG.S_ITS ---
BILATERAL DIGITAL SCREENING MAMMOGRAM 3D/2D WITH CAD: 07/06/2023 CLINICAL: Routine screening. Family history of breast cancer. Comparison is made to exams dated: 06/20/2022 mammogram, 06/11/2021 mammogram, and 04/14/2020 mammogram - [facility]. There are scattered areas of fibroglandular density in both breasts (category b / 25%-50% glandular tissue). Current study was also evaluated with a Computer Aided Detection (CAD) system. There is a benign vascular calcification in both breasts. There is possible architectural distortion in the left breast at 1 o'clock posterior depth. No other significant masses, calcifications, or other findings are seen in either breast. IMPRESSION: INCOMPLETE: NEEDS ADDITIONAL IMAGING EVALUATION The possible architectural distortion in the left breast is indeterminate. Additional views with possible ultrasound are recommended. Based on the Tyrer Cuzick model (a risk assessment model) the patient's lifetime risk is 10.1% and her 10 year risk is 5.9%. According to the ACR, ACS, and NCCN guidelines, an annual breast MRI exam along with mammogram is recommended if the patient's lifetime risk is 20% or greater. This exam was interpreted at Station ID: [id number]. NOTE: For mammograms, a report in lay terms will be sent to the patient. Approximately 15% of breast malignancies will not be visualized mammographically. In the management of a palpable breast mass, a negative mammogram must not discourage biopsy of a clinically suspicious lesion. Electronically Signed By: Promise riddle/:07/06/2023 17:33:12 letter sent: Additional Imaging Needed ACR BI-RADS Category 0: Incomplete 3340F
== END ==
PROVIDERS: Family Provider Family Medicine; PCP Family Medicine; Referring Provider Family Medicine; Visit Provider Family Medicine
DX: Z12.31 Encounter for screening mammogram for malignant neoplasm of breast (principal); R92.8 Other abnormal and inconclusive findings on diagnostic imaging of breast
CPT/HCPCS: 77063; 77067

== ENCOUNTER → 2023-08-03 08:49 | Outpatient (CLI) | payer BC, SELFPAY ==
--- NOTE | 2023-08-03 | DI.MG.S_ITS ---
UNILATERAL LEFT DIGITAL DIAGNOSTIC MAMMOGRAM 3D/2D WITH ADDITIONAL VIEWS: 08/03/2023 CLINICAL: Additional evaluation requested from prior study. Comparison is made to exams dated: 07/06/2023 mammogram, 06/20/2022 mammogram, 06/11/2021 mammogram, 05/04/2020 mammogram, and 04/14/2020 mammogram - [facility]. There are scattered areas of fibroglandular density in the left breast (category b / 25%-50% glandular tissue). The possible architectural distortion seen on recent screening mammogram did not persist with additional imaging and likely represents superimposition of normal breast tissue. No significant masses, calcifications, or other findings are seen in the breast. IMPRESSION: INCOMPLETE: NEEDS ADDITIONAL IMAGING EVALUATION Probable superimposition of normal breast tissue. Recommend further evaluation with targeted breast ultrasound, which will immediately follow this exam. Based on the Tyrer Cuzick model (a risk assessment model) the patient's lifetime risk is 10.1% and her 10 year risk is 5.9%. According to the ACR, ACS, and NCCN guidelines, an annual breast MRI exam along with mammogram is recommended if the patient's lifetime risk is 20% or greater. This exam was interpreted at Station ID: [id number]. NOTE: For mammograms, a report in lay terms will be sent to the patient. Approximately 15% of breast malignancies will not be visualized mammographically. In the management of a palpable breast mass, a negative mammogram must not discourage biopsy of a clinically suspicious lesion. Electronically Signed By: Cheri Acosta M.D., PH.D eb/:08/03/2023 09:19:11 ACR BI-RADS Category 0: Incomplete [id number]
--- NOTE | 2023-08-03 | DI.US.S_ITS ---
LIMITED ULTRASOUND OF LEFT BREAST: 08/03/2023 CLINICAL: Patient returns today to evaluate a focal asymmetry in the left breast. Comparison is made to exams dated: 08/03/2023 mammogram, 07/06/2023 mammogram, 06/20/2022 mammogram, 06/11/2021 mammogram, 05/04/2020 ultrasound, and 05/04/2020 mammogram - [facility]. Color flow and real-time ultrasound of the left breast 1 o'clock region were performed. Confirmatory ultrasound demonstrates no sonographic abnormality at 1 o'clock, 4 cm from the nipple. IMPRESSION: NEGATIVE Superimposition of normal breast tissue with confirmatory negative ultrasound. No sonographic or mammographic evidence of malignancy. A 1 year screening mammogram is recommended. Findings and recommendations were conveyed to the patient at the time of imaging completion. This exam was interpreted at Station ID: [id number]. Electronically Signed By: Cheri Acosta M.D., PH.D eb/:08/03/2023 09:33:50 letter sent: Normal Exam Ultrasound BI-RADS: 1 Negative
== END ==
PROVIDERS: Family Provider Family Medicine; PCP Family Medicine; Referring Provider Family Medicine; Visit Provider Family Medicine
DX: R92.8 Other abnormal and inconclusive findings on diagnostic imaging of breast (principal)
CPT/HCPCS: 76642; 77065; G0279

== ENCOUNTER 2023-08-31 21:53 | Emergency (ER) | payer BC, SELFPAY ==
[2023-08-31 21:57] VITALS: BP 162/77; PULSE 72; RESP 18; TEMP 36.6; O2SAT 98; BMI 21.2
--- NOTE | 2023-08-31 22:13 | ED_ITS ---
HPI - General Adult General Chief complaint: Abdominal Pain Stated complaint: R sided ab pain Time Seen by Provider: 08/31/23 22:06 Source: patient Mode of arrival: Ambulatory History of Present Illness HPI narrative: 62-year-old female who had approximately noon today after eating started to have right upper quadrant abdominal discomfort. Has not had a bowel movement since the onset of the symptoms. She does have history of ulcerative colitis but states that it is in? remission? she is not having any urinary symptoms. There has been waxing and waning symptoms. This evening she tried to eat some cereal before she went to bed and had a return of the symptoms. No fevers. She has had quite a bit of burping which does not necessarily change the discomfort. No back pain. No history of kidney stones. Has had a hysterectomy but no other abdominal surgeries Related Data Home Medications Medication Instructions Recorded Confirmed balsalazide 750 mg capsule 1,500 mg PO TID 06/08/22 06/08/22 estradiol 0.01% (0.1 mg/gram) 1 g vaginal 2XW 06/08/22 06/08/22 vaginal cream (Estrace) estradiol 0.05 mg/24 hr semiweekly 1 patch transdermal 2XW 06/08/22 06/08/22 transdermal patch Allergies Allergy/AdvReac Type Severity Reaction Status Date / Time sulfasalazine AdvReac Vomiting Verified 08/31/23 21:57 Review of Systems Constitutional Constitutional: Reports system reviewed and no additional complaints, except as documented Cardiovascular Cardiovascular: Reports system reviewed and no additional complaints, except as documented Respiratory Respiratory: Reports system reviewed and no additional complaints, except as documented Gastrointestinal Gastrointestinal: Reports system reviewed and no additional complaints, except as documented Genitourinary Genitourinary: Reports system reviewed and no additional complaints, except as documented Integumentary/Breasts Skin/Breast: Reports system reviewed and no additional complaints, except as documented Neurologic Neurologic: Reports system reviewed and no additional complaints, except as documented Patient History Social History Smoking Status: Never smoker Smoking Status: Never smoker alcohol intake frequency: a few times a week Substance Use Type: does not use Exam Initial Vital Signs Initial Vital Signs: Vital Signs Temperature 97.8 F 08/31/23 21:57 Pulse Rate 72 08/31/23 21:57 Respiratory Rate 18 08/31/23 21:57 Blood Pressure 162/77 H 08/31/23 21:57 Pulse Oximetry 98 08/31/23 21:57 Oxygen Delivery Method Room Air 08/31/23 21:57 HENMT Head: normal to inspection and normocephalic Resp Effort & Inspection: normal respiratory effort Auscultation: clear to auscultation bilaterally Cardio Rate: regular rate Rhythm: regular rhythm GI Inspection: normal to inspection and non-distended Palpation: soft, No firm, No guarding and tender (Mildly tender right upper quadrant, negative Diaz sign) Back/Spine/Pelvis Back: No CVA tenderness Neuro General: patient awake and moves all extremities Course Orders Ordered: ED Orders 08/31/23 22:13 US abdomen limited Stat 08/31/23 22:20 Complete Blood Count AUTO DIFF Stat Comprehensive Metabolic Panel Stat Lipase Stat 09/01/23 00:05 CT abdomen pelvis w con Stat Vital Signs Vital signs: Vital Signs - 8 hr 08/31/23 21:57 08/31/23 23:06 08/31/23 23:08 Temperature 97.8 F Pulse Rate 72 71 Respiratory Rate 18 Blood Pressure 162/77 H 182/77 H Pulse Oximetry 98 99 Oxygen Delivery Method Room Air Room Air 08/31/23 23:08 08/31/23 23:30 08/31/23 23:30 Temperature Pulse Rate 69 65 Respiratory Rate Blood Pressure 160/75 H Pulse Oximetry 97 97 Oxygen Delivery Method Room Air Room Air 09/01/23 00:00 09/01/23 00:00 09/01/23 00:30 Temperature Pulse Rate 59 L 68 Respiratory Rate Blood Pressure 180/79 H Pulse Oximetry 97 97 Oxygen Delivery Method 09/01/23 00:33 09/01/23 00:33 09/01/23 01:00 Temperature Pulse Rate 67 Respiratory Rate Blood Pressure 149/64 H 130/58 L Pulse Oximetry 96 Oxygen Delivery Method 09/01/23 01:00 Temperature Pulse Rate 66 Respiratory Rate 18 Blood Pressure Pulse Oximetry 97 Oxygen Delivery Method Medical Decision Making Lab Data Lab results reviewed: Yes I reviewed the patient's lab results. 08/31/23 22:20 08/31/23 22:20 Labs: Lab Results 08/31/23 Range/Units 22:20 WBC 6.8 (4.5-11.0) X10^3/uL RBC 4.12 (4.0-5.2) X10^6/uL Hgb 12.9 (12.0-16.0) g/dL Hct 37.5 (36-46) % MCV 91.0 (80-100) fL MCH 31.3 (26-34) PG MCHC 34.3 (30-36) % RDW 12.5 (11.6-14.8) % Plt Count 188 (150-400) X10^3/uL Neut % (Auto) 71.4 (50-75) % Lymph % (Auto) 21.8 L (25-40) % Major % (Auto) 5.7 (3-14) % Eos % (Auto) 0.7 L (2-4) % Baso % (Auto) 0.4 (0-2) % Neut # (Auto) 4900 (9032-3953) /uL Lymph # (Auto) 1500 (8674-6885) /uL Major # (Auto) 400 (0-900) /uL Eos # (Auto) 0 (0-450) /uL Baso # (Auto) 0 (0-100) /uL Sodium 126 L (137-145) mmol/L Potassium 3.7 (3.4-5.1) mmol/L Chloride 92 L (98-107) mmol/L Carbon Dioxide 27 (22-32) mmol/L BUN 17 (7-17) mg/dL Creatinine 0.44 L (0.52-1.04) mg/dL Estimated GFR > 60 (>60) mL/min BUN/Creatinine Ratio 38.6 H (6-22) Glucose 119 H (80-110) mg/dL Calcium 9.7 (8.4-10.2) mg/dL Total Bilirubin 0.6 (0.2-1.3) mg/dL AST 31 (14-36) IU/L ALT 25 (<35) IU/L Alkaline Phosphatase 44 (38-126) U/L Total Protein 7.4 (6.3-8.2) g/dL Albumin 4.5 (3.5-5.0) g/dL Globulin 2.9 (1.7-4.1) g/dL Albumin/Globulin Ratio 1.6 (1.0-2.8) Lipase 41 (23-300) U/L Urine Dip Bedside Urine Glucose Negative Bedside Urine Bilirubin - Negative Bedside Urine Ketone - Negative Urine Specific [place] 1.010 Bedside Urine Occult Blood - Negative Bedside Urine pH 8.5 Bedside Urine Protein - Negative Bedside Urine Urobilinogen - Negative Bedside Urine Nitrite - Negative Bedside Urine Leukocytes - Negative Esterase Point of care testing: Urine Dip Bedside Urine Glucose Negative Bedside Urine Bilirubin - Negative Bedside Urine Ketone - Negative Urine Specific [place] 1.010 Bedside Urine Occult Blood - Negative Bedside Urine pH 8.5 Bedside Urine Protein - Negative Bedside Urine Urobilinogen - Negative Bedside Urine Nitrite - Negative Bedside Urine Leukocytes - Negative Esterase Imaging Data US - abdomen: Radiologist's Impression: PROCEDURE: US ABDOMEN LIMITED INDICATIONS: RIGHT UPPER QUADRANT PAIN TECHNIQUE: Real-time scanning was performed of the abdominal and retroperitoneal organs, with image documentation. COMPARISON: None. FINDINGS: Liver: Liver is normal in size and homogeneous in echotexture. Gallbladder: Gallbladder is normal in sonographic appearance without gallstones, gallbladder wall thickening, pericholecystic fluid, or abnormal sonographic Diaz's. Biliary ducts: Intrahepatic bile ducts are non-dilated. Extrahepatic bile duct caliber measures 4 mm. Normal is 6-7 mm or less in diameter, or 10 mm or less post-cholecystectomy. Pancreas: Visualized portions of the pancreas are sonographically normal. Miscellaneous: No free abdominal fluid. IMPRESSION: No acute sonographic abnormalities identified in the right upper quadrant to explain patient's pain. CT scan - abdomen/pelvis: Radiologist's Impression: PROCEDURE: CT ABDOMEN PELVIS W CON INDICATIONS: RUQ abd pain TECHNIQUE: After the administration of intravenous contrast, axial sections acquired from the lung bases to the pubic symphysis. Coronal and sagittal reformats were performed. For radiation dose reduction, the following was used: automated exposure control, adjustment of mA and/or kV according to patient size. COMPARISON: None. FINDINGS: Image quality: Diagnostic Lung bases: Unremarkable. Heart: No significant findings. ABDOMEN: Liver: Unremarkable. Gallbladder: Unremarkable Biliary ducts: No intrahepatic or extrahepatic biliary ductal dilatation identified. Pancreas: Homogeneous enhancement without focal lesions or pancreatic ductal dilatation. No peripancreatic inflammation or organized fluid collections. Spleen: No splenomegaly Adrenal Glands: Unremarkable. Kidneys and Ureters: Kidneys are symmetric in size and enhancement, and there is no obstructive uropathy. No perinephric inflammatory changes. Ureters are normal in course and caliber. Stomach and Bowel: There is moderate distension of the stomach with greater than expected circumferential wall prominence of the distal gastric antrum/pylorus. There are also multiple loops of fluid-filled small bowel seen throughout the abdomen. There is mild circumferential wall thickening and surrounding stranding involving the distal ascending colon and proximal transverse colon near the hepatic flexure. This can be seen on axial image 36/series 2 and coronal image 21/series 4. No evidence for bowel obstruction. Moderate amount of fecal material seen throughout the colon. The appendix is not definitively visualized. However, the most likely candidate demonstrates mild prominence without significant periappendiceal stranding. The epicenter of inflammatory changes appear to be in the right upper quadrant. Peritoneum: No abnormal intraperitoneal fluid. No free air. Ventral Wall: No hernias. Abdominal Nodes: No retroperitoneal or mesenteric adenopathy by size criteria. Vessels: Aorta and inferior vena cava are normal in size. PELVIS: Pelvic Organs: Unremarkable. Bladder: Unremarkable. Pelvic Nodes: No enlarged lymph nodes. Miscellaneous: No hernias are seen. Bones: No acute vertebral body compression fractures. Multilevel spondylitic changes throughout the imaged spine. Findings are most severe at L2-3. No suspicious osseous lesions. IMPRESSION: Mild thickening of the distal gastric antrum and pylorus, distal ascending colon/proximal transverse colon, and multiple fluid-filled loops of small bowel likely related to gastroenteritis either infectious or inflammatory in etiology. No evidence for bowel obstruction. Of note, the appendix is not definitively visualized . The most likely candidate is noted in the right lower quadrant which appears mildly prominent but this may be secondary to diffuse inflammatory process described above. The epicenter of inflammatory changes appears to be in the right upper quadrant. MDM Narrative Medical decision making narrative: LFTs and lipase unremarkable. Urinalysis shows no signs of infection. No blood. Low suspicion for pyelonephritis or renal colic. Negative Diaz's sign. Right upper quadrant ultrasound negative. Low suspicion for gallbladder pathology. CT scan shows colitis in the area where the patient is having discomfort. She states she is actually feeling better. No indication for surgical consultation. No indication for antibiotics. Did discuss the possibility that ulcerative colitis could show up like this on a CT scan but she was also not having any other symptoms that would be suspicious for ulcerative colitis. Will discharge patient home with return precautions. She expressed understanding and agreement with plan. Discharge Plan Departure Patient Disposition: Home Clinical Impression: Abdominal pain, Colitis Instructions: DI for Colitis Activity Restrictions/Additional Instructions: Continue to take all of your medications as directed. I recommend that you contact your primary care doctor for follow-up. I also recommend a bland diet for the next couple days and advance as tolerated. Return to the emergency department for new symptoms. Prescriptions: No Action balsalazide 750 mg capsule 1,500 mg PO TID estradiol [Estrace] 0.01 % (0.1 mg/gram) cream 1 g vaginal 2XW estradiol 0.05 mg/24 hr patch semiweekly 1 patch transdermal 2XW Rx Instructions: apply 1 patch for 3 days alternating with 1 patch for 4 days each week for 3 wks per 4-wk cycle Referrals: Lilliana Ng MD [Primary Care Provider] - Stand Alone Forms: Patient Portal/API
[2023-08-31 22:27] LABS: Add Manual Diff / Slide Review NO; Basophils Absolute Auto 0 /uL (0-100); Basophils Percent Auto 0.4 % (0-2); Eosinophils Absolute Auto 0 /uL (0-450); Eosinophils Percent Auto 0.7 % (2-4); Hematocrit 37.5 % (36-46); Hemoglobin 12.9 g/dL (12.0-16.0); Lymphocytes Absolute Auto 1500 /uL (1100-4500); Lymphocytes Percent Auto 21.8 % (25-40); Mean Corpuscular HGB Conc 34.3 % (30-36); Mean Corpuscular Hemoglobin 31.3 PG (26-34); Monocytes Absolute Auto 400 /uL (0-900); Monocytes Percent Auto 5.7 % (3-14); Neutrophils Absolute Auto 4900 /uL (1500-7000); Neutrophils Percent Auto 71.4 % (50-75); Platelet Count 188 X10^3/uL (150-400); Red Blood Cell Count 4.12 X10^6/uL (4.0-5.2); Red Cell Distribution Width 12.5 % (11.6-14.8); White Blood Cell Count 6.8 X10^3/uL (4.5-11.0)
[2023-08-31 22:47] LABS: Alanine Aminotransferase 25 IU/L (<35); Albumin 4.5 g/dL (3.5-5.0); Albumin Globulin Ratio 1.6 (1.0-2.8); Alkaline Phosphatase 44 U/L (38-126); Aspartate Aminotransferase 31 IU/L (14-36); BUN Creatinine Ratio 38.6 (6-22); Bilirubin Total 0.6 mg/dL (0.2-1.3); Blood Urea Nitrogen 17 mg/dL (7-17); Calcium 9.7 mg/dL (8.4-10.2); Carbon Dioxide 27 mmol/L (22-32); Chloride 92 mmol/L (98-107); Estimated Glomerular Filt Rate > 60 mL/min (>60); Globulin 2.9 g/dL (1.7-4.1); Glucose 119 mg/dL (80-110); HEMOLYSIS < 15 (0-50); Lipase 41 U/L (23-300); Potassium 3.7 mmol/L (3.4-5.1); Sodium 126 mmol/L (137-145); Total Protein 7.4 g/dL (6.3-8.2)
[2023-08-31 23:06] VITALS: PULSE 71; O2SAT 99
[2023-08-31 23:08] VITALS: BP 182/77; PULSE 69; O2SAT 97
[2023-08-31 23:30] VITALS: BP 160/75; PULSE 65; O2SAT 97
[2023-09-01] VITALS: BP 180/79; PULSE 59; O2SAT 97
--- NOTE | 2023-09-01 00:05 | DI.CT.S_ITS ---
PROCEDURE: CT ABDOMEN PELVIS W CON INDICATIONS: RUQ abd pain TECHNIQUE: After the administration of intravenous contrast, axial sections acquired from the lung bases to the pubic symphysis. Coronal and sagittal reformats were performed. For radiation dose reduction, the following was used: automated exposure control, adjustment of mA and/or kV according to patient size. COMPARISON: None. FINDINGS: Image quality: Diagnostic Lung bases: Unremarkable. Heart: No significant findings. ABDOMEN: Liver: Unremarkable. Gallbladder: Unremarkable Biliary ducts: No intrahepatic or extrahepatic biliary ductal dilatation identified. Pancreas: Homogeneous enhancement without focal lesions or pancreatic ductal dilatation. No peripancreatic inflammation or organized fluid collections. Spleen: No splenomegaly Adrenal Glands: Unremarkable. Kidneys and Ureters: Kidneys are symmetric in size and enhancement, and there is no obstructive uropathy. No perinephric inflammatory changes. Ureters are normal in course and caliber. Stomach and Bowel: There is moderate distension of the stomach with greater than expected circumferential wall prominence of the distal gastric antrum/pylorus. There are also multiple loops of fluid-filled small bowel seen throughout the abdomen. There is mild circumferential wall thickening and surrounding stranding involving the distal ascending colon and proximal transverse colon near the hepatic flexure. This can be seen on axial image 36/series 2 and coronal image 21/series 4. No evidence for bowel obstruction. Moderate amount of fecal material seen throughout the colon. The appendix is not definitively visualized. However, the most likely candidate demonstrates mild prominence without significant periappendiceal stranding. The epicenter of inflammatory changes appear to be in the right upper quadrant. Peritoneum: No abnormal intraperitoneal fluid. No free air. Ventral Wall: No hernias. Abdominal Nodes: No retroperitoneal or mesenteric adenopathy by size criteria. Vessels: Aorta and inferior vena cava are normal in size. PELVIS: Pelvic Organs: Unremarkable. Bladder: Unremarkable. Pelvic Nodes: No enlarged lymph nodes. Miscellaneous: No hernias are seen. Bones: No acute vertebral body compression fractures. Multilevel spondylitic changes throughout the imaged spine. Findings are most severe at L2-3. No suspicious osseous lesions. IMPRESSION: Mild thickening of the distal gastric antrum and pylorus, distal ascending colon/proximal transverse colon, and multiple fluid-filled loops of small bowel likely related to gastroenteritis either infectious or inflammatory in etiology. No evidence for bowel obstruction. Of note, the appendix is not definitively visualized . The most likely candidate is noted in the right lower quadrant which appears mildly prominent but this may be secondary to diffuse inflammatory process described above. The epicenter of inflammatory changes appears to be in the right upper quadrant. Dictated by: Chuck Rodrigez M.D. on 09/01/2023 at 0:47 Approved by: Chuck Rodrigez M.D. on 09/01/2023 at 1:05
[2023-09-01 00:30] VITALS: PULSE 68; O2SAT 97
[2023-09-01 00:33] VITALS: BP 149/64; PULSE 67; O2SAT 96
[2023-09-01 01:00] VITALS: BP 130/58; PULSE 66; RESP 18; O2SAT 97
== END 2023-09-01 01:36 | disposition home or self-care (01) ==
PROVIDERS: Emergency Provider Emergency Medicine; Family Provider Family Medicine; PCP Family Medicine
DX: K52.9 Noninfective gastroenteritis and colitis, unspecified (principal); R10.11 Right upper quadrant pain
CPT/HCPCS: 36415; 74177; 76705; 80053; 81003; 83690; 85025; 99283; 99284; Q9967

== ENCOUNTER 2024-01-15 15:57 | Emergency (ER) | payer BC, SELFPAY ==
[2024-01-15] VITALS (13 sets, daily range): BP systolic 145–171; BP diastolic 68–94; PULSE 63–79; RESP 16–18; TEMP 36.3; O2SAT 96–100; BMI 21.2
[2024-01-15 16:32] LABS: Add Manual Diff / Slide Review NO; Basophils Absolute Auto 0 /uL (0-100); Basophils Percent Auto 0.2 % (0-2); Eosinophils Absolute Auto 0 /uL (0-450); Eosinophils Percent Auto 0.1 % (2-4); Hematocrit 37.9 % (36-46); Hemoglobin 13.1 g/dL (12.0-16.0); Lymphocytes Absolute Auto 700 /uL (1100-4500); Lymphocytes Percent Auto 13.5 % (25-40); Mean Corpuscular HGB Conc 34.6 % (30-36); Mean Corpuscular Hemoglobin 31.5 PG (26-34); Mean Corpuscular Volume 91.1 fL (80-100); Monocytes Absolute Auto 200 /uL (0-900); Monocytes Percent Auto 3.4 % (3-14); Neutrophils Absolute Auto 4100 /uL (1500-7000); Neutrophils Percent Auto 82.8 % (50-75); Platelet Count 138 X10^3/uL (150-400); Red Blood Cell Count 4.16 X10^6/uL (4.0-5.2); Red Cell Distribution Width 13.3 % (11.6-14.8)
[2024-01-15 16:45] LABS: Alanine Aminotransferase 31 IU/L (<35); Albumin 4.6 g/dL (3.5-5.0); Albumin Globulin Ratio 1.7 (1.0-2.8); Alkaline Phosphatase 50 U/L (38-126); Aspartate Aminotransferase 33 IU/L (14-36); BUN Creatinine Ratio 28.8 (6-22); Bilirubin Total 0.6 mg/dL (0.2-1.3); Blood Urea Nitrogen 17 mg/dL (7-17); Calcium 9.1 mg/dL (8.4-10.2); Carbon Dioxide 26 mmol/L (22-32); Chloride 98 mmol/L (98-107); Estimated Glomerular Filt Rate > 60 mL/min (>60); Globulin 2.7 g/dL (1.7-4.1); Glucose 124 mg/dL (80-110); HEMOLYSIS < 15 (0-50); Lipase 30 U/L (23-300); Potassium 3.6 mmol/L (3.4-5.1); Sodium 131 mmol/L (137-145); Total Protein 7.3 g/dL (6.3-8.2)
[2024-01-15] MEDS: ONDANSETRON 4 MG/2 ML INJ IV (17:22)
--- NOTE | 2024-01-15 18:46 | ED.GENADULT ---
HPI - General Adult General Chief complaint: Abdominal Pain Stated complaint: ABD Pain with eright side back pain Time Seen by Provider: 01/15/24 16:44 Source: patient Mode of arrival: Ambulatory Limitations: no limitations History of Present Illness HPI narrative: Patient is a 63-year-old female who is here for evaluation of right-sided flank/back discomfort and right-sided abdominal pain. She stated that her symptoms started earlier today. It alternates between her abdomen and her back. No urinary symptoms. No change in bowel habits. She stated that she did vomit 1 time today because of the pain and that did not change any of her symptoms. No fevers. She has not currently nauseous. No skin rashes. She did have similar symptoms several months ago for which she was evaluated here in the ER and had a unremarkable CT scan and ultrasound. She is scheduled to have a colonoscopy on of this week which was a routine colonoscopy. She has had a hysterectomy. Related Data Home Medications Medication Instructions Recorded Confirmed balsalazide 750 mg capsule 1,500 mg PO TID 06/08/22 06/08/22 estradiol 0.01% (0.1 mg/gram) 1 g vaginal 2XW 06/08/22 06/08/22 vaginal cream (Estrace) estradiol 0.05 mg/24 hr semiweekly 1 patch transdermal 2XW 06/08/22 06/08/22 transdermal patch Allergies Allergy/AdvReac Type Severity Reaction Status Date / Time sulfasalazine AdvReac Vomiting Verified 08/31/23 21:57 Review of Systems Review of Systems Narrative: See HPI Patient History Social History Smoking Status: Never smoker Smoking Status: Never smoker alcohol intake frequency: a few times a week Substance Use Type: does not use Exam Initial Vital Signs Initial Vital Signs: Vital Signs Temperature 97.3 F L 01/15/24 16:00 Pulse Rate 69 01/15/24 16:00 Respiratory Rate 18 01/15/24 16:00 Blood Pressure 169/74 H 01/15/24 16:00 Pulse Oximetry 100 01/15/24 16:00 Oxygen Delivery Method Room Air 01/15/24 16:00 Const General: cooperative, comfortable and No ill appearing HENMT Head: normal to inspection and normocephalic Resp Effort & Inspection: normal respiratory effort Auscultation: clear to auscultation bilaterally Cardio Rate: regular rate Rhythm: regular rhythm GI Inspection: normal to inspection and non-distended Palpation: soft, No firm and No guarding Back/Spine/Pelvis Back: No CVA tenderness Skin General: no rashes or lesions noted Neuro General: patient alert, patient awake and moves all extremities Course Orders Ordered: ED Orders 01/15/24 16:05 EKG-12 Lead Stat 01/15/24 16:21 Complete Blood Count AUTO DIFF Stat Comprehensive Metabolic Panel Stat Lipase Stat 01/15/24 18:47 US abdomen limited Stat 01/15/24 18:49 Urine Microscopic Stat Discontinued Medications Hydrocodone Bitart/Acetaminophen (Hydrocodone/Acet 5/325 Prepack) 1 bottle MISC DIRECTED ONE Stop: 01/15/24 20:44 Last Admin: 01/15/24 20:50 Dose: 1 bottle Documented By: JESSICA Ketorolac Tromethamine (Ketorolac 30 Mg/Ml Vial) 30 mg IV NOW ONE Stop: 01/15/24 18:47 Last Admin: 01/15/24 19:15 Dose: 30 mg Documented By: JESSICA Ondansetron HCl (Ondansetron 4 Mg Odt) 4 mg PO NOW PRN PRN Reason: Nausea And Vomiting Ondansetron HCl (Ondansetron 4 Mg/2 Ml Inj) 4 mg IV NOW PRN PRN Reason: Nausea And Vomiting Last Admin: 01/15/24 17:22 Dose: 4 mg Documented By: NORM Ondansetron HCl (Ondansetron 4 Mg Odt Prepack) 1 bottle MISC DIRECTED ONE Stop: 01/15/24 20:44 Last Admin: 01/15/24 20:50 Dose: 1 bottle Documented By: JESSICA Sodium Chloride (Sodium Chloride 0.9% Flush) 10 ml IV BID [facility] Sodium Chloride (Sodium Chloride 0.9% Flush) 10 ml IV PRN PRN PRN Reason: Flush Vital Signs Vital signs: Vital Signs - 8 hr 01/15/24 16:30 01/15/24 16:32 01/15/24 16:32 Pulse Rate 63 63 Respiratory Rate Blood Pressure 162/70 H Pulse Oximetry 100 100 Oxygen Delivery Method Room Air 01/15/24 17:00 01/15/24 17:00 01/15/24 17:30 Pulse Rate 71 Respiratory Rate Blood Pressure 171/76 H 154/68 H Pulse Oximetry 100 Oxygen Delivery Method 01/15/24 17:30 01/15/24 18:00 01/15/24 18:01 Pulse Rate 66 66 Respiratory Rate Blood Pressure 167/69 H Pulse Oximetry 97 97 Oxygen Delivery Method Room Air 01/15/24 18:01 01/15/24 18:30 01/15/24 18:30 Pulse Rate 66 67 Respiratory Rate Blood Pressure 155/70 H Pulse Oximetry 98 97 Oxygen Delivery Method Room Air 01/15/24 19:00 01/15/24 19:00 01/15/24 19:26 Pulse Rate 68 79 Respiratory Rate Blood Pressure 151/69 H Pulse Oximetry 97 96 Oxygen Delivery Method Room Air Room Air 01/15/24 19:26 01/15/24 19:30 01/15/24 19:30 Pulse Rate 66 Respiratory Rate Blood Pressure 145/94 H 150/87 H Pulse Oximetry 98 Oxygen Delivery Method Room Air 01/15/24 20:00 01/15/24 20:00 01/15/24 20:30 Pulse Rate 72 Respiratory Rate Blood Pressure 149/68 H 155/70 H Pulse Oximetry 96 Oxygen Delivery Method Room Air 01/15/24 20:30 Pulse Rate 68 Respiratory Rate 16 Blood Pressure Pulse Oximetry 97 Oxygen Delivery Method Room Air Medical Decision Making Medical Records Medical records reviewed: Yes I reviewed the patient's medical records. Lab Data Lab results reviewed: Yes I reviewed the patient's lab results. 01/15/24 16:21 01/15/24 16:21 Labs: Lab Results 01/15/24 01/15/24 Range/Units 16:21 18:49 WBC 5.0 (4.5-11.0) X10^3/uL RBC 4.16 (4.0-5.2) X10^6/uL Hgb 13.1 (12.0-16.0) g/dL Hct 37.9 (36-46) % MCV 91.1 (80-100) fL MCH 31.5 (26-34) PG MCHC 34.6 (30-36) % RDW 13.3 (11.6-14.8) % Plt Count 138 L (150-400) X10^3/uL Neut % (Auto) 82.8 H (50-75) % Lymph % (Auto) 13.5 L (25-40) % [place] % (Auto) 3.4 (3-14) % Eos % (Auto) 0.1 L (2-4) % Baso % (Auto) 0.2 (0-2) % Neut # (Auto) 4100 (7524-6929) /uL Lymph # (Auto) 700 L (5088-8848) /uL [place] # (Auto) 200 (0-900) /uL Eos # (Auto) 0 (0-450) /uL Baso # (Auto) 0 (0-100) /uL Sodium 131 L (137-145) mmol/L Potassium 3.6 (3.4-5.1) mmol/L Chloride 98 (98-107) mmol/L Carbon Dioxide 26 (22-32) mmol/L BUN 17 (7-17) mg/dL Creatinine 0.59 (0.52-1.04) mg/dL Estimated GFR > 60 (>60) mL/min BUN/Creatinine Ratio 28.8 H (6-22) Glucose 124 H (80-110) mg/dL Calcium 9.1 (8.4-10.2) mg/dL Total Bilirubin 0.6 (0.2-1.3) mg/dL AST 33 (14-36) IU/L ALT 31 (<35) IU/L Alkaline Phosphatase 50 (38-126) U/L Total Protein 7.3 (6.3-8.2) g/dL Albumin 4.6 (3.5-5.0) g/dL Globulin 2.7 (1.7-4.1) g/dL Albumin/Globulin Ratio 1.7 (1.0-2.8) Lipase 30 (23-300) U/L Urine RBC None seen (0-5/HPF) Urine WBC None seen (0-5/HPF) Ur Squamous Epith Cells None seen (0-5/HPF) Urine Bacteria None seen (None) Ur Culture Indicated? Cult not indicated Vol Urine Centrifuged 10ml (spun) Urine Dip Bedside Urine Glucose Negative Bedside Urine Bilirubin - Negative Bedside Urine Ketone +++ 80 Urine Specific [place] 1.015 Bedside Urine Occult Blood - Negative Bedside Urine pH 7.0 Bedside Urine Protein +/- 15 Bedside Urine Urobilinogen - Negative Bedside Urine Nitrite - Negative Bedside Urine Leukocytes - Negative Esterase Point of care testing: Urine Dip Bedside Urine Glucose Negative Bedside Urine Bilirubin - Negative Bedside Urine Ketone +++ 80 Urine Specific [place] 1.015 Bedside Urine Occult Blood - Negative Bedside Urine pH 7.0 Bedside Urine Protein +/- 15 Bedside Urine Urobilinogen - Negative Bedside Urine Nitrite - Negative Bedside Urine Leukocytes - Negative Esterase Imaging Data US - abdomen: Radiologist's Impression: PROCEDURE: US ABDOMEN LIMITED INDICATIONS: RUQ PAIN TECHNIQUE: Real-time focused scanning was performed of the abdomen, with image documentation. COMPARISON: [facility], US, US ABDOMEN LIMITED, 08/31/2023, 22:56. FINDINGS: Liver measures 13 cm. Mildly distended gallbladder. Otherwise unremarkable sonographic appearance of the gallbladder and CBD, which measures 5 mm. Pancreas is unremarkable. IMPRESSION: Mildly distended gallbladder. Otherwise no acute sonographic abnormality. ECG Data Attestation: I personally reviewed and interpreted this ECG as follows: Interpretation: Sinus bradycardia Ventricular rate of 59 Normal axis Normal QRS Normal QTC No ST T wave changes MDM Narrative Medical decision making narrative: Patient does have a relatively benign exam. Labs are unremarkable to include LFTs and lipase. CBC is unremarkable. She has a negative Diaz's sign. Right upper quadrant ultrasound shows mildly distended gallbladder without signs of an acute cholecystitis. This potentially could have been the result of a recently passed stone. Patient is not currently vomiting. I do feel based on her presentation today that we should hold on a CT scan. I feel that the risks of the CT scan outweigh any potential benefit based on her presentation today. Plan will be to discharge home with instructions to keep her scheduled colonoscopy appointment for of this week. She was given return precautions. She expressed understanding and agreement. Discharge Plan Departure Patient Disposition: Home Clinical Impression: Abdominal pain Instructions: DI for Abdominal Pain-Adult Activity Restrictions/Additional Instructions: Continue to take all of your medications as directed. Recommend that you take the nausea medicine in the pain medicine as needed. Contact your primary doctor for follow-up. Keep your appointment on for your colonoscopy. Return to the emergency department for new symptoms. Prescriptions: No Action balsalazide 750 mg capsule 1,500 mg PO TID estradiol [Estrace] 0.01 % (0.1 mg/gram) cream 1 g vaginal 2XW estradiol 0.05 mg/24 hr patch semiweekly 1 patch transdermal 2XW Rx Instructions: apply 1 patch for 3 days alternating with 1 patch for 4 days each week for 3 wks per 4-wk cycle Referrals: Lilliana Ng MD [Primary Care Provider] - Stand Alone Forms: Patient Portal/API
--- NOTE | 2024-01-15 18:47 | DI.US.S_ITS ---
PROCEDURE: US ABDOMEN LIMITED INDICATIONS: RUQ PAIN TECHNIQUE: Real-time focused scanning was performed of the abdomen, with image documentation. COMPARISON: [facility], , US ABDOMEN LIMITED, 08/31/2023, 22:56. FINDINGS: Liver measures 13 cm. Mildly distended gallbladder. Otherwise unremarkable sonographic appearance of the gallbladder and CBD, which measures 5 mm. Pancreas is unremarkable. IMPRESSION: Mildly distended gallbladder. Otherwise no acute sonographic abnormality. Dictated by: Martin Lopez M.D. on 01/15/2024 at 19:59 Approved by: Martin Lopez M.D. on 01/15/2024 at 20:00
[2024-01-15 19:07] LABS: Bacteria Urine None Seen; Culture Indicated Urine Cult Not Indicated; RBC Urine None Seen (0-5/HPF); Squamous Epithelial Cell Urine None Seen (0-5/HPF); Urine Volume 10mL (spun); WBC Urine None Seen (0-5/HPF)
[2024-01-15] MEDS: KETOROLAC 30 MG/ML VIAL IV (19:15)
[2024-01-15] MEDS: ONDANSETRON 4 MG ODT PREPACK 1 BOTTLE MISC (20:50)
[2024-01-15] MEDS: HYDROCODONE/ACET 5/325 PREPACK 1 BOTTLE MISC (20:50)
== END 2024-01-15 20:58 | disposition home or self-care (01) ==
PROVIDERS: Emergency Medicine; Emergency Provider Emergency Medicine; Family Provider Family Medicine; PCP Family Medicine
DX: R10.9 Unspecified abdominal pain (principal); M54.9 Dorsalgia, unspecified
CPT/HCPCS: 36415; 76705; 80053; 81003; 81015; 83690; 85025; 93005; 96374; 96375; 99284; J1885; J2405

== ENCOUNTER → 2024-03-25 07:45 | Outpatient (CLI) | payer BC, SELFPAY ==
--- NOTE | 2024-03-25 07:47 | DI.NM.S_ITS ---
PROCEDURE: NM HIDA WITH CCK PHARMACEUTICAL: 5.5 mCi Tc-99m mebrofenin IV; 1.1 mcg CCK IV. INDICATIONS: Right upper quadrant pain TECHNIQUE: Following intravenous administration of Tc-99m mebrofenin, sequential anterior abdominal images were obtained. To evaluate the contractile response of the gallbladder in response to Cholecystokinin (CCK), sincalide (0.02 ?g/kg) was administered by slow intravenous infusion approximately 60 minutes after the administration of the radiopharmaceutical. Sequential imaging was continued for 30 minutes after the start of CCK infusion. Gallbladder ejection fraction was calculated. COMPARISON: [facility], US, US ABDOMEN LIMITED, 01/15/2024, 19:31. [facility], CT, CT ABDOMEN PELVIS W CON, 09/01/2023, 0:14. FINDINGS: Biliary scan: There is normal tracer uptake and excretion by the liver. There is normal visualization of the intrahepatic ducts, common bile duct, and gallbladder. There is normal tracer transit into the duodenum. CCK stimulation: There is nonpainful contractile response of the gallbladder to CCK infusion. The calculated gallbladder ejection fraction is 47% ; normal values are above 35%. It has been shown that any patient abdominal pain after CCK administration is related to the rate of CCK injection, rather than to any underlying gallbladder disease (Clinical Nuclear Medicine 2012; 37: 63-70. Journal of Nuclear Medicine 2014; 55: 1-9). IMPRESSION: Normal gallbladder visualization with ejection fraction 47%. Dictated by: Carmina Claire M.D. on 03/25/2024 at 15:42 Approved by: Carmina Claire M.D. on 03/25/2024 at 15:44
== END ==
PROVIDERS: Family Provider Family Medicine; PCP Family Medicine; Referring Provider Internal Medicine Gastroenterology; Visit Provider Internal Medicine Gastroenterology
DX: R10.11 Right upper quadrant pain (principal)
CPT/HCPCS: 78227; A9537; J2805

== ENCOUNTER → 2024-08-27 11:30 | Outpatient (CLI) | payer BC, SELFPAY ==
--- NOTE | 2024-08-27 11:34 | DI.MG.S_ITS ---
BILATERAL DIGITAL SCREENING MAMMOGRAM 3D/2D WITH CAD: 08/27/2024 CLINICAL: Routine screening. Family history of breast cancer. Comparison is made to exams dated: 07/06/2023 mammogram, 06/20/2022 mammogram, 06/11/2021 mammogram, and 08/03/2023 mammogram - [facility]. There are scattered areas of fibroglandular density (category b / 25%-50% glandular tissue). Current study was also evaluated with a Computer Aided Detection (CAD) system. No significant masses, calcifications, or other findings are seen in either breast. There has been no significant interval change. IMPRESSION: NEGATIVE There is no mammographic evidence of malignancy. A 1 year screening mammogram is recommended. Based on the Tyrer Cuzick model (a risk assessment model) the patient's lifetime risk is 9.7% and her 10 year risk is 5.8%. According to the ACR, ACS, and NCCN guidelines, an annual breast MRI exam along with mammogram is recommended if the patient's lifetime risk is 20% or greater. This exam was interpreted at Station ID: [id number]. NOTE: For mammograms, a report in lay terms will be sent to the patient. Approximately 15% of breast malignancies will not be visualized mammographically. In the management of a palpable breast mass, a negative mammogram must not discourage biopsy of a clinically suspicious lesion. Electronically Signed By: Talib stack/micaela:08/27/2024 12:06:12 letter sent: Normal Exam ACR BI-RADS Category 1: Negative
== END ==
PROVIDERS: Family Provider Family Medicine; PCP Family Medicine; Referring Provider Family Medicine; Visit Provider Family Medicine
DX: Z12.31 Encounter for screening mammogram for malignant neoplasm of breast (principal); Z80.3 Family history of malignant neoplasm of breast
CPT/HCPCS: 77063; 77067

== ENCOUNTER → 2025-02-20 10:25 | Outpatient (CLI) | payer OTHER, SELFPAY ==
--- NOTE | 2025-02-20 10:27 | DI.ECHO.S_ITS ---
[facility] : : [id number] : [place] : : [id number] : : Phone: [phone] Echocardiogram Report + + :Name: ALEM AMANDA Study Date: 02/20/2025 Height: 64 in : :[facility] [employer] [facility] ReadingLocation: Weight: 122 lb : : Gender: Female BSA: 1.6 m2 : :: 1960 Age: 64 yrs BP: 130/74 mmHg: :Reason For Study: FAMILY HISTORY OF HYPERTROPHIC : :CARDIOMYOPATHY : :Ordering Physician: HALEY, : :NEREYDA Performed By: Alonzo Randolph : :Referring: NEREYDA DE LEON : + + Interpretation Summary There is normal left ventricular wall thickness. The ejection fraction is estimated to be 60-65%. Diastolic parameters suggest probable normal left ventricular diastolic function and normal filling pressures. The right ventricle is normal in size and function. There is mild tricuspid regurgitation. The right ventricular systolic pressure is estimated to be at least 32 mmHg based on an estimated right atrial pressure of 8 mm Hg. Procedure: A two-dimensional transthoracic echocardiogram with color flow and Doppler was performed. The study quality was technically good. There is no prior echocardiogram noted for this patient. The patient was in normal sinus rhythm during the exam. Left Ventricle: The left ventricle is normal in size. There is normal left ventricular wall thickness. There is no ventricular septal defect visualized. The ejection fraction is estimated to be 60-65%. There are no focal wall motion abnormalities. Diastolic parameters suggest probable normal left ventricular diastolic function and normal filling pressures. Right Ventricle: The right ventricle is normal in size and function. Atria: The left atrial size is normal. Right atrial size is normal. There is no Doppler evidence for an interatrial shunt. Mitral Valve: The mitral valve leaflets appear normal. There is no evidence of stenosis, fluttering, or prolapse. There is no mitral regurgitation noted. Aortic Valve: The aortic valve is trileaflet. The aortic valve opens well. There is no aortic valve stenosis. No aortic regurgitation is present. Tricuspid Valve: The tricuspid valve leaflets are thin and pliable. There is mild tricuspid regurgitation. The right ventricular systolic pressure is estimated to be at least 32 mmHg based on an estimated right atrial pressure of 8 mm Hg. Pulmonic Valve: The pulmonic valve is not well visualized. There is no pulmonic valvular regurgitation. Great Vessels: The aortic root is normal size. The dimensions of the ascending aorta are normal. The pulmonary artery is not well visualized, but is probably normal size. The IVC is dilated (diameter is greater than 2.1 cm) yet it collapses greater than 50% with a sniff. This suggests a right atrial pressure of 8 mm Hg. Pericardium/ Pleura There is no pericardial effusion. There is no pleural effusion. MMode/2D Measurements & Calculations LVIDd: 4.0 cm LVOT diam: 2.1 cm LVIDs: 2.6 cm Ao root diam: 2.9 cm FS: 36.1 % asc Aorta Diam: 2.7 cm EPSS: 0.40 cm Ao Arch Diam (Prox Trans): 1.4 cm IVSd: 0.92 cm LVPWd: 0.83 cm LV mendez. diameter/BSA (cm/m^2): 2.5 LV sys. diameter/BSA (cm/m^2): 1.6 LA A2 area: 17.3 cm2 RA long axis: 4.4 cm LA A4 area: 15.3 cm2 RA area: 12.8 cm2 LA length (vol): 4.5 cm RA vol: 31.5 ml LA vol: 50.5 ml RA : 19.9 ml/m2 LA vol index: 31.9 ml/m2 IVC diam: 2.1 cm RVD1 (basal): 4.0 cm RVD2 (mid): 2.9 cm TAPSE: 2.9 cm Doppler Measurements & Calculations Ao V2 max: 115.6 cm/sec LVOT Max Kevin: 81.0 cm/sec Ao V2 mean: 90.6 cm/sec LV V1 max P.6 mmHg Ao max P.3 mmHg LV V1 VTI: 17.9 cm Ao mean P.4 mmHg CHARANJIT(I,D): 2.5 cm2 Ao V2 VTI: 25.2 cm CHARANJIT(V,D): 2.5 cm2 sev ratio: 0.71 CHARANJIT indexed to BSA (cm^2/m^2): 1.6 MV E max kevin: 73.0 cm/sec TR max kevin: 244.2 cm/sec MV A max kevin: 56.0 cm/sec TR max P.9 mmHg MV E/A: 1.3 PA V2 max: 100.2 cm/sec Med Peak E' Kevin: 10.1 cm/sec PA V2 mean: 74.8 cm/sec E/E' med: 7.2 PA mean P.4 mmHg Lat Peak E' Kevin: 9.7 cm/sec PA pr(Accel): 24.2 mmHg E/E' lat: 7.5 E/e' average: 7.4 MV dec time: 0.13 sec SV(OT): 63.9 ml Reading Physician:02:48 PM
--- NOTE | 2025-02-20 10:28 | DI.RAD.S_ITS ---
PROCEDURE: XR DEXA AXIAL SKELETON INDICATIONS: FM HX OF HYPERTROPHIC CARDIOMYOPATHY COMPARISON: [facility], , XR DEXA AXIAL SKELETON, 12/06/2022, 12:04. FINDINGS: Lumbar Spine (L2 and L4 excluded due to increased density from degenerative disc disease): Bone mineral density 1.144 g/cm2, T score 1.0, previously 0.6. Left Femoral Neck: Bone mineral density 0.683 g/cm2, T score -1.5. Left Hip: Bone mineral density 0.822 g/cm2, T score -1, previously -0.8. Fracture Risk Calculation (when applicable): 10-year fracture risk of a major osteoporotic fracture 8.4 percent and of a hip fracture 0.9 percent. (T score greater or equal to -1.0 to: NORMAL) (T score from -1.1 to -2.4: OSTEOPENIA) (T score less than or equal to -2.5: OSTEOPOROSIS) IMPRESSION: Osteopenia . Follow-up guidelines as follows: Osteoporosis: Consider a repeat DEXA and Vertebral Fracture Assessment (VFA) exam in 2 years or sooner if medically necessary, to reassess this patient's status. Osteopenia: Consider a repeat DEXA in 2-3 years to reassess this patient's status, or if there is a new clinical indication. Normal: Consider a repeat DEXA in 5 years or sooner, or if there is a new clinical indication. All treatment decisions require clinical judgment and consideration of individual patient factors, including patient preferences, comorbidities, previous drug use, risk factors not captured in the FRAX model (e.g., frailty, falls, vitamin D deficiency, increased bone turnover, interval significant decline in bone density ) and possible under- or over-estimation of fracture risk by FRAX. In addition, the NOF Guide recommends that FDA-approved medical therapies be considered in postmenopausal women and men age >= 50 years with a: * Hip or vertebral (clinical or morphometric) fracture * T-score of <=-2.5 at the spine or hip * Ten-year fracture probability by FRAX of >= 3% for hip fracture or >=20% for major osteoporotic fracture. Dictated by: Tiburcio Carmen M.D. on 02/20/2025 at 14:06 Approved by: Tiburcio Carmen M.D. on 02/20/2025 at 14:07
== END ==
PROVIDERS: Family Provider Family Medicine; PCP Family Medicine; Referring Provider Family Medicine; Visit Provider Family Medicine
DX: I07.1 Rheumatic tricuspid insufficiency (principal); E78.2 Mixed hyperlipidemia; Z82.49 Family history of ischemic heart disease and other diseases of the circulatory system; M85.89 Other specified disorders of bone density and structure, multiple sites; Z78.0 Asymptomatic menopausal state
CPT/HCPCS: 77080; 93306